=== PATIENT | male | born 1935 | race Caucasian/White ===

== ENCOUNTER 2018-07-14 19:06 | Emergency (ER) | payer MEDICARE, OTHER ==
--- NOTE | 2018-07-14 20:23 | ER Document Report ---
ED General - General Mode of Arrival: Ambulatory Information source: Patient TRAVEL OUTSIDE OF THE U.S. IN LAST 30 DAYS: No <RACHANA LANE - Last Filed: 07/15/18 03:14> <ADRIANATEODORO Kruger - Last Filed: 07/18/18 10:47> - General Chief Complaint: Low Back Pain Stated Complaint: BACK PAIN Time Seen by Provider: 07/14/18 19:54 Notes: Patient is an 82-year-old male with Alzheimer's disease, neuropathy and arthritis and history of UTIs presents to the emergency department via EMS complaining of multiple symptoms including bilateral lower extremity swelling, altered mental status and difficulty ambulating. states the patient normally "shuffles" around his home with a walker and normally sits in a lift chair. She states today, the patient sat in a normal chair and was unable to get up. She states the patient became angry with her when attempting to get up, which she attributes to his worsening Alzheimer's and states she proceeded to call EMS. She also states the patient's lower extremities have been swelling more over the last few weeks. also complains of urinary incontinence and urinary frequency. Patient denies any recent falls, fevers or recent illnesses. She states the patient is currently on Lasix and she attempts to keep his feet elevated at most times. Patient is on 81 mg of Aspirin. (RACHANA LANE) - Related Data Allergies/Adverse Reactions: No Known Allergies Allergy (Unverified 01/17/14 09:30) Past Medical History - General Information source: Patient, Relative - Social History Smoking Status: Never Smoker Chew tobacco use (# tins/day): No Frequency of alcohol use: None Drug Abuse: None Family History: CAD, Malignancy - Leukemia Patient has suicidal ideation: No Patient has homicidal ideation: No - Past Medical History Cardiac Medical History: Reports: Hx Hypercholesterolemia, Hx Hypertension Pulmonary Medical History: Reports: Hx Pneumonia - 2009 Comment Only: Hx Bronchitis - 2010 Malignancy Medical History: Reports Hx Colorectal Cancer - Status post left hemicolectomy chemotherapy and radiation in 1996, Reports Hx Skin Cancer - Melanoma status post experimental chemotherapy in 1965 Musculoskeletal Medical History: 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 Skin Medical History: Reports Hx Psoriasis Past Surgical History: Reports: Hx Abdominal Surgery - Immunizations Hx Diphtheria, Pertussis, Tetanus Vaccination: Yes Hx Pneumococcal Vaccination: 06/23/11 <[address]HANA L[address] - Last Filed: 07/15/18 03:14> Review of Systems - Review of Systems Constitutional: No symptoms reported EENT: No symptoms reported Cardiovascular: No symptoms reported Respiratory: No symptoms reported Gastrointestinal: No symptoms reported Genitourinary: See HPI Male Genitourinary: No symptoms reported Musculoskeletal: See HPI Skin: No symptoms reported Hematologic/Lymphatic: No symptoms reported Neurological/Psychological: See HPI -: Yes All other systems reviewed and negative <ARIANAJULIUSRONNIE - Last Filed: 07/15/18 03:14> Physical Exam <ARIANA,JULIUSRONNIE - Last Filed: 07/15/18 03:14> <TEODORO WRIGHT Slick - Last Filed: 07/18/18 10:47> - Vital signs Vitals: Resp 14 07/14/18 19:15 - Notes Notes: GENERAL: Alert, interacts well. No acute distress. HEAD: Normocephalic, atraumatic. EYES: Pupils equal, round, and reactive to light. Extraocular movements intact. ENT: Oral mucosa moist, tongue midline. NECK: Full range of motion. Supple. Trachea midline. LUNGS: Clear to auscultation bilaterally, no wheezes, rales, or rhonchi. No respiratory distress. HEART: Regular rate and rhythm. No murmurs, gallops, or rubs. ABDOMEN: Soft, non-tender. Non-distended. Bowel sounds present in all 4 quadrants. EXTREMITIES: Moves all 4 extremities spontaneously. +1 Pitting edema in the BLE. NEUROLOGICAL: Alert to person and place, not oriented to time. Altered from baseline. PSYCH: Normal affect, normal mood. SKIN: Warm, dry, normal turgor. No rashes or lesions noted. (RACHANA LANE) Course - Laboratory Result Diagrams: 07/14/18 20:28 07/14/18 20:28 <ARIANAJULIUSRONNIE - Last Filed: 07/15/18 03:14> - Laboratory Result Diagrams: 07/14/18 20:28 07/14/18 20:28 <TEODORO WRIGHT - Last Filed: 07/18/18 10:47> - Re-evaluation Re-evalutation: 07/15/18 21:33 Per nurse, patient is able to stand. (RACHANA LANE) 07/14/18 21:33 Patient's labs within normal limits are nonsignificant with no signs of urinary tract infection on urinalysis. Patient was able to stand to urinate and is able to ambulate per the at his house. No recent cough congestion fevers or illnesses. Primary reason patient was brought to emergency department was by EMS as patient sat in a chair other than his lift chair today and otherwise is not able to. I did discuss that he may soon need higher level of care and acknowledged that possibility. Regards to his fluid retention in his legs advised to use compression stockings as well as elevate his legs with several pillows while sleeping. He is to follow-up with his primary care doctor within the next week for reevaluation. In regards to patient's lower back pain this appears chronic in nature, no recent falls (TEODORO WRIGHT) - Vital Signs Vital signs: Temp Pulse Resp BP Pulse Ox 16 208/99 H 97 07/14/18 21:01 07/14/18 21:01 07/14/18 21:01 - Laboratory Laboratory results interpreted by me: 07/14/18 07/14/18 20:28 20:58 Carbon Dioxide 34 H ALT 20 L Total Protein 6.0 L Albumin 3.4 L Urine Protein 100 H Urine Urobilinogen 2.0 H Urine Ascorbic Acid 40 H Discharge <RACHANA LANE - Last Filed: 07/15/18 03:14> <TEODORO WRIGHT - Last Filed: 07/18/18 10:47> - Discharge Clinical Impression: Fluid retention in legs Dementia Qualifiers: Dementia type: Alzheimer's disease Alzheimer's disease onset: unspecified onset Dementia behavioral disturbance: with behavioral disturbance Qualified Code(s): G30.9 - Alzheimer's disease, unspecified Condition: Fair Disposition: HOME, SELF-CARE Instructions: Edema, Peripheral ([facility]) Referrals: RAJWINDER WEBB MD [Primary Care Provider] - Follow up as needed (2-3 days for re- evaluation) Scribe Attestation: 07/18/18 10:47 I personally performed the services described in the documentation, reviewed and edited the documentation which was dictated to the scribe in my presence, and it accurately records my words and actions. (TEODORO WRIGHT) Scribe Documentation - Scribe Written by Pabloe:: Elba Small, 07/14/2018 20:31 acting as scribe for :: Adriana <RACHANA LANE - Last Filed: 07/15/18 03:14>
[2018-07-14 20:40] LABS: ABSOLUTE EOSINOPHILS # (AUTO) 0.2 10^3/uL (0.0-0.6); ABSOLUTE LYMPHOCYTES (AUTO) 2.3 10^3/uL (0.5-4.7); ABSOLUTE MONOCYTES (AUTO) 0.9 10^3/uL (0.1-1.4); ABSOLUTE NEUT (AUTO) 5.1 10^3/uL (1.7-8.2); BASOPHILS % (AUTO) 0.5 % (0-2); EOSINOPHILS % (AUTO) 2.6 % (0-6); HEMATOCRIT 43.8 % (37.9-51.0); MEAN CORPUSCULAR HGB CONC 34.2 g/dL (32.0-36.0); MEAN CORPUSCULAR VOLUME 88 fl (80-97); MONOCYTES % (AUTO) 10.3 % (3-13); PLATELET COUNT 156 10^3/uL (150-450); RED CELL DISTRIBUTION WIDTH 13.9 % (11.5-14.0); SEGMENTED NEUTROPHILS % (AUTO) 59.6 % (42-78); TOTAL CELLS COUNTED % (AUTO) 100 %; WHITE BLOOD COUNT 8.5 10^3/uL (4.0-10.5)
[2018-07-14 20:55] LABS: ALANINE AMINOTRANSFERASE 20 U/L (21-72); ALBUMIN 3.4 g/dL (3.5-5.0); ALKALINE PHOSPHATASE 82 U/L (38-126); ANION GAP 9 (5-19); ASPARTATE AMINO TRANSFERASE 25 U/L (17-59); BILIRUBIN,DIRECT 0.2 mg/dL (0.0-0.4); BILIRUBIN,TOTAL 0.7 mg/dL (0.2-1.3); BLOOD UREA NITROGEN 16 mg/dL (7-20); CALCIUM 9.5 mg/dL (8.4-10.2); CARBON DIOXIDE 34 mmol/L (22-30); CHLORIDE 99 mmol/L (98-107); GLUCOSE 96 mg/dL (75-110); POTASSIUM 4.2 mmol/L (3.6-5.0); SODIUM 141.7 mmol/L (137-145)
[2018-07-14 21:15] LABS: APPEARANCE,URINE CLEAR; BILIRUBIN,URINE NEGATIVE (NEGATIVE); COLOR,URINE YELLOW; GLUCOSE, URINE NEGATIVE (NEGATIVE); KETONES,URINE NEGATIVE (NEGATIVE); LEUKOCYTE ESTERASE,URINE NEGATIVE (NEGATIVE); NITRITE,URINE NEGATIVE (NEGATIVE); PROTEIN,URINE 100 mg/dL (NEGATIVE); URINE SPECIFIC GRAVITY 1.014
[2018-07-14 21:22] VITALS: BP 208/99
== END 2018-07-14 21:45 | disposition home or self-care (01) ==
LOC: ER 19:06
DX: R60.9 Edema, unspecified (principal); M54.5 Low back pain; G30.9 Alzheimer's disease, unspecified; F02.80 Dementia in other diseases classified elsewhere, unspecified severity, without behavioral disturbance, psychotic disturbance, mood disturbance, and anxiety; E78.00 Pure hypercholesterolemia, unspecified; I10 Essential (primary) hypertension; Z87.440 Personal history of urinary (tract) infections; Z79.82 Long term (current) use of aspirin
CPT/HCPCS: 36415; 80053; 81001; 85025; 99284

== ENCOUNTER 2018-12-15 08:44 | Inpatient (IN) | payer MEDICARE, OTHER ==
[2018-12-15 09:28] LABS: ABSOLUTE EOSINOPHILS # (AUTO) 0.1 10^3/uL (0.0-0.6); ABSOLUTE LYMPHOCYTES (AUTO) 1.3 10^3/uL (0.5-4.7); ABSOLUTE MONOCYTES (AUTO) 0.7 10^3/uL (0.1-1.4); ABSOLUTE NEUT (AUTO) 10.3 10^3/uL (1.7-8.2); BASOPHILS % (AUTO) 0.3 % (0-2); EOSINOPHILS % (AUTO) 0.6 % (0-6); HEMATOCRIT 45.7 % (37.9-51.0); HEMOGLOBIN 15.3 g/dL (13.5-17.0); LYMPHOCYTES % (AUTO) 10.8 % (13-45); MEAN CORPUSCULAR HGB CONC 33.6 g/dL (32.0-36.0); MEAN CORPUSCULAR VOLUME 90 fl (80-97); MONOCYTES % (AUTO) 5.5 % (3-13); PLATELET COUNT 153 10^3/uL (150-450); RED BLOOD COUNT 5.11 10^6/uL (4.35-5.55); RED CELL DISTRIBUTION WIDTH 14.2 % (11.5-14.0); SEGMENTED NEUTROPHILS % (AUTO) 82.8 % (42-78); TOTAL CELLS COUNTED % (AUTO) 100 %; WHITE BLOOD COUNT 12.4 10^3/uL (4.0-10.5)
[2018-12-15 09:35] LABS: APPEARANCE,URINE CLEAR; BILIRUBIN,URINE NEGATIVE (NEGATIVE); COLOR,URINE YELLOW; GLUCOSE, URINE NEGATIVE (NEGATIVE); INTERNATIONAL RATION (INR) 0.92; KETONES,URINE NEGATIVE (NEGATIVE); LEUKOCYTE ESTERASE,URINE NEGATIVE (NEGATIVE); NITRITE,URINE NEGATIVE (NEGATIVE); PROTEIN,URINE 100 mg/dL (NEGATIVE); PROTHROMBIN TIME 12.8 SEC (11.4-15.4); URINE SPECIFIC GRAVITY 1.015
[2018-12-15 09:45] LABS: ALANINE AMINOTRANSFERASE 28 U/L (21-72); ALBUMIN 3.6 g/dL (3.5-5.0); ALKALINE PHOSPHATASE 86 U/L (38-126); ANION GAP 6 (5-19); ASPARTATE AMINO TRANSFERASE 25 U/L (17-59); BILIRUBIN,DIRECT 0.4 mg/dL (0.0-0.4); BLOOD UREA NITROGEN 17 mg/dL (7-20); CALCIUM 9.7 mg/dL (8.4-10.2); CARBON DIOXIDE 30 mmol/L (22-30); CHLORIDE 104 mmol/L (98-107); GLUCOSE 124 mg/dL (75-110); SODIUM 139.9 mmol/L (137-145); TOTAL PROTEIN 6.2 g/dL (6.3-8.2)
--- NOTE | 2018-12-15 10:00 | RADIOLOGY REPORT (SQ) ---
EXAM DESCRIPTION: CT HEAD WITHOUT COMPLETED DATE/TIME: 12/15/2018 9:42 am REASON FOR STUDY: FALL COMPARISON: 01/10/2015 TECHNIQUE: Axial images acquired through the brain without intravenous contrast. Images reviewed wi th bone, brain and subdural windows. Choose to Images stored on PACS. All CT scanners at this facility use dose modulation, iterative reconstruction, and/or weight based d osing when appropriate to reduce radiation dose to as low as reasonably achievable (ALARA). [facility]: Dose Right [facility]: CareDose [facility]: Dose Right [facility]: Teradose 4D [facility]: NONO RADIATION DOSE: CT Rad equipment meets quality standard of care and radiation dose reduction techniq ues were employed. CTDIvol: 53.2 mGy. DLP: 1044 mGy-cm.mGy. LIMITATIONS: None. FINDINGS: VENTRICLES: Prominent. CEREBRUM: No masses. No hemorrhage. No midline shift. Areas of low density in the white matter mos t likely due to chronic micro-vascular ischemic change. No evidence for acute infarction. CEREBELLUM: No masses. No hemorrhage. No alteration of density. No evidence for acute infarction. EXTRAAXIAL SPACES: Age-related involutional change. No fluid collections. No masses. ORBITS AND GLOBE: No intra- or extraconal masses. Normal contour of globe without masses. CALVARIUM: No fracture. PARANASAL SINUSES: No fluid or mucosal thickening. SOFT TISSUES: No mass or hematoma. OTHER: No other significant finding. IMPRESSION: CHRONIC CHANGES OF ATROPHY AND MICROVASCULAR ISCHEMIA. NO ACUTE PROCESS. EVIDENCE OF ACUTE STROKE: NO. TECHNICAL DOCUMENTATION: JOB ID: [id number] Quality ID # [id number]: Final reports with documentation of one or more dose reduction techniques (e.g., Au tomated exposure control, adjustment of the mA and/or kV according to patient size, use of iterative reconstruction technique) 2010 [employer]- All Rights Reserved Reading location - IP/workstation name: [email or web address]
--- NOTE | 2018-12-15 10:03 | RADIOLOGY REPORT (SQ) ---
EXAM DESCRIPTION: CT CERVICAL SPINE WITHOUT COMPLETED DATE/TIME: 12/15/2018 9:42 am REASON FOR STUDY: FALL COMPARISON: None. TECHNIQUE: Axial images acquired through the cervical spine without intravenous contrast. Images re viewed with lung, soft tissue and bone windows. Reconstructed coronal and sagittal MPR images review ed. Images stored on PACS. All CT scanners at this facility use dose modulation, iterative reconstruction, and/or weight based d osing when appropriate to reduce radiation dose to as low as reasonably achievable (ALARA). [facility]: Dose Right [facility]: CareDose [facility]: Dose Right [facility]: Teradose 4D [facility]: Code[employer]ike RADIATION DOSE: CT Rad equipment meets quality standard of care and radiation dose reduction techniq ues were employed. CTDIvol: 27.2 mGy. DLP: 560 mGy-cm. mGy. LIMITATIONS: Motion. FINDINGS: ALIGNMENT: Reversal of lordotic curve. Grade 1 spondylolisthesis multiple levels with spa ring of C2-3. MINERALIZATION: Osteopenia. VERTEBRAL BODIES: No fractures or dislocation. DISCS: Multilevel disc space narrowing with osteophytes. FACETS, LATERAL MASSES, POSTERIOR ELEMENTS: Facet arthropathy. No fractures. No dislocation. No ac florian findings. HARDWARE: None in the spine. VISUALIZED RIBS: No fractures. LUNG APICES AND SOFT TISSUES: No significant or acute findings. OTHER: No other significant finding. IMPRESSION: CHRONIC DEGENERATIVE CHANGES. NO ACUTE FINDINGS. TECHNICAL DOCUMENTATION: JOB ID: [id number] Quality ID # [id number]: Final reports with documentation of one or more dose reduction techniques (e.g., Au tomated exposure control, adjustment of the mA and/or kV according to patient size, use of iterative reconstruction technique) 2010 [employer]- All Rights Reserved Reading location - IP/workstation name: [email or web address]
--- NOTE | 2018-12-15 10:09 | RADIOLOGY REPORT (SQ) ---
EXAM DESCRIPTION: HAND LEFT 3 VIEWS COMPLETE DATE/TIME: 12/15/2018 9:56 am REASON FOR STUDY: fall Deformity FINDINGS: Please see combined report for performance of procedure and radiologic supervision and int erpretation. IMPRESSION: Please see combined report for performance of procedure and radiologic supervision and i nterpretation. Reading location - IP/workstation name: [email or web address]
--- NOTE | 2018-12-15 10:09 | RADIOLOGY REPORT (SQ) ---
EXAM DESCRIPTION: FOREARM LEFT COMPLETED DATE/TIME: 12/15/2018 9:56 am REASON FOR STUDY: fall Deformity COMPARISON: None. NUMBER OF VIEWS: Five views. TECHNIQUE: AP, lateral, and oblique radiographic images acquired of the left wrist. AP and lateral views of the left forearm. LIMITATIONS: None. FINDINGS: MINERALIZATION: Osteopenia. BONES: Physical comminuted fracture of the distal radius with impaction and approximately 30 volar a ngulation. Widening of the scapholunate space may indicate concurrent ligamentous injury. SOFT TISSUES: No soft tissue swelling. No foreign body. OTHER: No other significant finding. IMPRESSION: Fracture of the distal radius. TECHNICAL DOCUMENTATION: JOB ID: [id number] [employer]- All Rights Reserved Reading location - IP/workstation name: [email or web address]
--- NOTE | 2018-12-15 10:14 | RADIOLOGY REPORT (SQ) ---
EXAM DESCRIPTION: PELVIS AP COMPLETED DATE/TIME: 12/15/2018 9:56 am REASON FOR STUDY: fall Deformity COMPARISON: None. NUMBER OF VIEWS: One view TECHNIQUE: AP Pelvis LIMITATIONS: None. FINDINGS: Bones are osteopenic. There is comminuted fracture of the left femoral neck intertrochant peter with varus angulation and impaction. Mild medial displacement of the lesser trochanter. No oth er fracture identified. IMPRESSION: Intertrochanteric fracture right femoral neck. TECHNICAL DOCUMENTATION: JOB ID: [id number] [employer]- All Rights Reserved Reading location - IP/workstation name: [email or web address]
[2018-12-15] MEDS ORDERED: FENTANYL CITRATE INJ/PF 100 MCG/2 ML AMPUL IV ONE (10:39)
--- NOTE | 2018-12-15 11:24 | ER Document Report ---
Addendum entered and electronically signed by POPPY LANCASTER PA-C 12/15/18 16:39: Course - Vital Signs Vital signs: Temp Pulse Resp BP Pulse Ox 97.3 F 69 17 173/102 H 94 12/15/18 09:26 12/15/18 09:17 12/15/18 15:27 12/15/18 16:06 12/15/18 16:06 - Laboratory Result Diagrams: 12/15/18 09:00 12/15/18 09:00 Laboratory results interpreted by me: 12/15/18 12/15/18 12/15/18 09:00 09:00 09:00 WBC 12.4 H RDW 14.2 H Seg Neutrophils % 82.8 H Lymphocytes % 10.8 L Absolute Neutrophils 10.3 H Est GFR (Non-Af Amer) 56 L Glucose 124 H Total Protein 6.2 L Urine Protein 100 H Urine Urobilinogen 4.0 H - Transfer of Care Notes: 12/15/18 16:38 Patient was placed in a Ortho-Glass forearm splint by the wind commissioning technician was checked by myself the emergency room physician public health training assistant will be good position which gave patient a significant amount of relief once he was stabilized. Refill in the nailbeds was less than 2 seconds still the patient has good range of motion with his fingers and at this time patient is tolerating the splint very well. Original Note: ED Fall - General Chief Complaint: Fall Injury Stated Complaint: HIP PAIN Time Seen by Provider: 12/15/18 09:07 Primary Care Provider: RAJWINDER WEBB MD [Primary Care Provider] - Follow up as needed Mode of Arrival: Medic Information source: Emergency Med Personnel Cannot obtain history due to: Dementia Notes: Patient is an 83-year-old male who comes in by EMS today after sustaining a fall from standing at home. EMS reports that the caregiver his indicated that he had got up to go to the bathroom and tripped and fell. It was reported the patient did not hit his head but there was not and I witnessed at the time of the fall. Although caretakers i.e. his indicated that he is acting his baseline. Patient is complaining of pain to his left hip/groin and his left hand/wrist. TRAVEL OUTSIDE OF THE [place] IN LAST 30 DAYS: No - HPI Occurred: Just prior to arrival Where: Home Context: Tripped, Fell from standing Associated symptoms: Dazed/confused. denies: Lost consciousness Location of injury/pain: Wrist, Lower extremity Quality of pain: Sharp, Throbbing Severity: Moderate Pain Level: 3 - Related data Allergies/Adverse Reactions: No Known Allergies Allergy (Unverified 01/17/14 09:30) Past Medical History - Social History Smoking Status: Unknown if Ever Smoked Cigarette use (# per day): No Chew tobacco use (# tins/day): No Smoking Education Provided: No Frequency of alcohol use: None Drug Abuse: None Lives with: Family Family History: Reviewed & Not Pertinent, CAD, Malignancy - Leukemia Patient has suicidal ideation: No Patient has homicidal ideation: No - Past Medical History Cardiac Medical History: Reports: Hx Hypercholesterolemia, Hx Hypertension Denies: Hx Coronary Artery Disease, Hx Heart Attack Pulmonary Medical History: Reports: Hx Pneumonia - 2009 Denies: Hx Asthma, Hx COPD, Hx Tuberculosis Comment Only: Hx Bronchitis - 2009 Neurological Medical History: Denies: Hx Cerebrovascular Accident, Hx Seizures Renal/ Medical History: Denies: Hx Peritoneal Dialysis Malignancy Medical History: Reports Hx Colorectal Cancer - Status post left hemicolectomy chemotherapy and radiation in 1996, Reports Hx Skin Cancer - Melanoma status post experimental chemotherapy in 1965 Musculoskeletal Medical History: 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 Denies: Hx Pacemaker - Immunizations Hx Diphtheria, Pertussis, Tetanus Vaccination: Yes Hx Pneumococcal Vaccination: 06/23/11 Review of Systems - Review of Systems Constitutional: No symptoms reported EENT: No symptoms reported Cardiovascular: No symptoms reported Respiratory: No symptoms reported Gastrointestinal: No symptoms reported Genitourinary: No symptoms reported Male Genitourinary: No symptoms reported Musculoskeletal: See HPI, Joint pain, Joint swelling, Muscle pain Skin: No symptoms reported Hematologic/Lymphatic: No symptoms reported Neurological/Psychological: No symptoms reported -: Yes All other systems reviewed and negative Physical Exam - Vital signs Vitals: Temp Pulse Resp BP 97.3 F 69 18 175/88 H 12/15/18 09:17 12/15/18 09:17 12/15/18 09:17 12/15/18 09:17 Interpretation: Hypertensive - Notes Notes: PHYSICAL EXAMINATION: GENERAL: Well-nourished 83-year-old male who is in no apparent distress, physical examination however he does not appear in moderate amount of pain and discomfort. HEAD: Atraumatic, normocephalic. EYES: Pupils equal round and reactive to light, extraocular movements intact, sclera anicteric, conjunctiva are normal. ENT: Nares patent, oropharynx clear without exudates. Moist mucous membranes. NECK: Normal range of motion, supple without lymphadenopathy patient will be his neck freely without any discomfort on arrival by EMS. LUNGS: Breath sounds clear to auscultation bilaterally and equal. No wheezes rales or rhonchi. HEART: Regular rate and rhythm without murmurs ABDOMEN: Soft, nontender, nondistended abdomen. No guarding, no rebound. No masses appreciated. Musculoskeletal: Examination patient's area of concern is his left hip him from the base of the feet up he has the left hip is rotated outward and is shortened by about an inch and a half. Palpation of the left groin shows moderate amount of tenderness. There is some mild ecchymosis in the local area unable to do any passive range of motion without any pain or discomfort. It is almost instantaneous pain to touch the area. There is no sign of any type of opening to this is a closed fracture. Patient displays good femoral pulses and good popliteal pulse and good dorsalis pedal pulse. Also displays good cap refill in the nailbeds of the left foot. The left wrist has an obvious deformity there is a what appears to be a volar deformity. There is a moderate-sized skin tear on the dorsum of the left hand. Patient has good flexion extension of all fingers and good dynamometer tester engine strength as well as good opposition. Patient has good cap refill in nailbeds of the left hand. NEUROLOGICAL: Cranial nerves grossly intact. Normal speech, normal gait. Norm al sensory, motor exams PSYCH: Normal mood, normal affect. SKIN: Warm, Dry, normal turgor, no rashes or lesions noted. - Neurological Neuro grossly intact: Yes Cognition: Normal Orientation: AAOx4 Girish Coma Scale Eye Opening: Spontaneous [place] Coma Scale Verbal: Oriented - Psychological Associated symptoms: Normal affect, Normal mood, Confused, Depressed - 1.42 was 11.4 Course - Re-evaluation Re-evalutation: 12/15/18 14:22 Patient is doing well while being here in the ER. He is only asked for pain medications on a few occasions and he is relatively comfortable. I have discussed this case with both Dr. Mariscal and he is on board on the case and he will be consulted by hospitalist for surgical intervention. We wrapped the wrist to the best of our ability to give us some stability and it felt much better for patient to have it open. He does have a skin tear on the hand we did not fix that skin tear secondary patient probably going to the OR and they can have available much better approach to it there. I have called the hospitalist and the nurse practitioner Zofia Luna is taking the patient I am given her the information she is accepted and we are going to make him an inpatient admit put him on telemetry. Patient's is also been very helpful and given his history. - Vital Signs Vital signs: Temp Pulse Resp BP Pulse Ox 97.3 F 69 18 175/88 H 12/15/18 09:26 12/15/18 09:17 12/15/18 09:17 12/15/18 09:17 - Laboratory Result Diagrams: 12/15/18 09:00 12/15/18 09:00 Laboratory results interpreted by me: 12/15/18 12/15/18 12/15/18 09:00 09:00 09:00 WBC 12.4 H RDW 14.2 H Seg Neutrophils % 82.8 H Lymphocytes % 10.8 L Absolute Neutrophils 10.3 H Est GFR (Non-Af Amer) 56 L Glucose 124 H Total Protein 6.2 L Urine Protein 100 H Urine Urobilinogen 4.0 H Discharge - Discharge Clinical Impression: Closed intertrochanteric fracture of left femur Qualifiers: Encounter type: initial encounter Fracture alignment: displaced Qualified Code(s): S72.142A - Displaced intertrochanteric fracture of left femur, initial encounter for closed fracture Distal radius fracture, left Qualifiers: Encounter type: initial encounter Fracture type: closed Fracture morphology: unspecified fracture morphology Qualified Code(s): S52.502A - Unspecified fracture of the lower end of left radius, initial encounter for closed fracture Condition: Good Disposition: ADMITTED INPATIENT Admitting Provider: Zofia Luna Forging Roll Operator Unit Admitted: Telemetry Referrals: RAJWINDER WEBB MD [Primary Care Provider] - Follow up as needed
--- NOTE | 2018-12-15 12:04 | RADIOLOGY REPORT (SQ) ---
EXAM DESCRIPTION: ANKLE LEFT AP/LATERAL COMPLETED DATE/TIME: 12/15/2018 11:48 am REASON FOR STUDY: fall COMPARISON: None. NUMBER OF VIEWS: Two views. TECHNIQUE: AP and lateral radiographic images acquired of the left ankle. LIMITATIONS: None. FINDINGS: MINERALIZATION: Osteopenia. BONES: No acute fracture or dislocation. No worrisome bone lesions. JOINTS: Intact. SOFT TISSUES: Diffuse swelling. No foreign body. OTHER: No other significant finding. IMPRESSION: Osteopenia. No fracture identified. TECHNICAL DOCUMENTATION: JOB ID: [id number] [employer]- All Rights Reserved Reading location - IP/workstation name: [email or web address]
--- NOTE | 2018-12-15 12:22 | EKG REPORT ---
SEVERITY:- ABNORMAL ECG - SINUS RHYTHM RIGHT BUNDLE BRANCH BLOCK PVC. : Confirmed by: Wily Warren MD 15-Dec-2018 12:20:48
[2018-12-15] MEDS ORDERED: HYDROMORPHONE HCL INJ/PF 2 MG/ML AMPULE IV ONE ×3 (12:41→19:45)
[2018-12-15] MEDS ORDERED: ACETAMINOPHEN 325 MG TABLET PO PRN (14:34)
[2018-12-15] MEDS ORDERED: ONDANSETRON 4 MG TAB.RAPDIS PO PRN (14:34)
[2018-12-15] MEDS ORDERED: HYDROMORPHONE HCL INJ/PF 2 MG/ML AMPULE IV PRN (15:43)
[2018-12-15] MEDS: METOPROLOL SUCCINATE 50 MG TAB.SR.24H PO SCH (16:07)
[2018-12-15] MEDS: HYDROMORPHONE HCL INJ/PF 2 MG/ML AMPULE IV PRN ×2 (16:33→21:32)
--- NOTE | 2018-12-15 17:18 | PDOC H&P ---
History of Present Illness Admission Date/PCP: RAJWINDER WEBB MD Patient complains of: FALL History of Present Illness: EMMA BOSTON JR is a 83 year old male with a PMH of HTN, HLD and dementia. Patient got up in the early a.m. to ambulate (with walker) to the bathroom. Patient tripped and fell from standing position, endorses head trauma but denies LOC. He was brought by ambulance to [facility] ED. Radiological studies reveal right intertrochanteric fracture of the femoral neck and fracture of the left distal radius. Laboratory studies relatively benign. EKG shows NSR, no ischemia or infarction. Plan to admit to hospitalist service with Ortho Surgery consulted. 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 Denies: Pacemaker Social History Information Source: Patient Lives with: Family Smoking Status: Former Smoker - 15 years Number of Years Smokin Last Time Smoked: 52 years ago Frequency of Alcohol Use: None Hx Recreational Drug Use: No Drugs: None Hx Prescription Drug Abuse: No - Advance Directive Resuscitation Status: Do Not Resuscitate Family History Family History: Reviewed & Not Pertinent, CAD, Malignancy - Leukemia Parental Family History Reviewed: Yes Children Family History Reviewed: Yes Sibling(s) Family History Reviewed.: Yes Medication/Allergy Home Medications: Ascorbic Acid [Vitamin C 500 mg Tablet] 500 mg PO DAILY 01/08/12 Aspirin [Aspirin 81 mg Chewable Tablet] 81 mg PO DAILY 01/08/12 Calcium Citrate/Vitamin D3 [Calcium Citrate with D Tablet] 1 each PO BID 01/08/12 Cholecalciferol (Vitamin D3) [Vitamin D3 2000 unit Capsule] 2,000 unit PO DAILY 01/08/12 Lisinopril [Prinivil 40 mg Tablet] 40 mg PO QPM 01/08/12 Metoprolol Succinate [Toprol Xl 50 mg Tab.sr] 50 mg PO BID 01/08/12 Multivitamin [Multi-Day Vitamins] 1 each PO DAILY 01/08/12 Simvastatin [Zocor 40 mg Tablet] 40 mg PO QPM 01/08/12 Acetaminophen with Codeine [Tylenol with Codeine #3 Tablet] 1 tab PO Q6 01/17/14 Fexofenadine HCl [Antonia] 1 tab PO DAILY PRN 01/17/14 Fluocinolone/Shower Cap [Kxbhe-Xcxrlzk-Du Scalp Oil] 1 tab TOP DAILY 01/17/14 Furosemide [Lasix 40 mg Tablet] 1 tab PO QAM 01/17/14 Gabapentin 300 mg PO TID 01/10/15 Morphine Sulfate [Morphine Sulfate ER] 30 mg PO 0600,1800 01/11/15 Docusate Sodium [Colace 100 mg Capsule] 100 mg PO BID #60 capsule 01/14/15 Levofloxacin [Levaquin 750 mg Tablet] 750 mg PO DAILY #10 tablet 01/14/15 Nystatin/Triamcin [Mycolog-II Ointment 15 gm] 1 applic TP DAILY #30 tube 01/14/15 Allergies/Adverse Reactions: No Known Allergies Allergy (Unverified 01/17/14 09:30) Review of Systems Eyes: ABSENT: visual disturbances Ears: ABSENT: hearing changes Nose, Mouth, and Throat: ABSENT: vertigo Cardiovascular: ABSENT: chest pain, dyspnea on exertion, orthropnea, palpitations Gastrointestinal: ABSENT: abdominal pain Genitourinary: ABSENT: dysuria Musculoskeletal: PRESENT: deformity - RLE Neurological: PRESENT: abnormal gait - requiring walker Psychiatric: ABSENT: anxiety, depression Endocrine: ABSENT: cold intolerance, heat intolerance Hematologic/Lymphatic: ABSENT: easy bleeding Physical Exam Vital Signs: Temp Pulse Resp BP Pulse Ox 97.3 F 69 19 173/96 H 91 L 12/15/18 09:26 12/15/18 09:17 12/15/18 14:00 12/15/18 13:01 12/15/18 14:00 General appearance: PRESENT: well-developed, well-nourished Head exam: PRESENT: atraumatic Eye exam: PRESENT: conjunctiva pink, PERRLA Mouth exam: PRESENT: moist, tongue midline Neck exam: PRESENT: full ROM Respiratory exam: PRESENT: clear to auscultation dante, symmetrical, unlabored Cardiovascular exam: PRESENT: RRR Pulses: PRESENT: normal radial pulses, normal dorsalis pedis pul Vascular exam: PRESENT: normal capillary refill GI/Abdominal exam: PRESENT: normal bowel sounds, soft. ABSENT: distended, tenderness Rectal exam: PRESENT: deferred Extremities exam: PRESENT: pedal edema - trace. ABSENT: full ROM Musculoskeletal exam: PRESENT: deformity. ABSENT: ambulatory, full ROM Neurological exam: PRESENT: alert, awake, oriented to person, oriented to place, oriented to time, oriented to situation Psychiatric exam: PRESENT: appropriate affect Skin exam: PRESENT: dry, intact, normal color Results Laboratory Results: 12/15/18 09:00 12/15/18 09:00 12/15/18 12/15/18 12/15/18 09:00 09:00 09:00 WBC 12.4 H RBC 5.11 Hgb 15.3 Hct 45.7 MCV 90 MCH 30.0 MCHC 33.6 RDW 14.2 H Plt Count 153 Seg Neutrophils % 82.8 H Lymphocytes % 10.8 L Monocytes % 5.5 Eosinophils % 0.6 Basophils % 0.3 Absolute Neutrophils 10.3 H Absolute Lymphocytes 1.3 Absolute Monocytes 0.7 Absolute Eosinophils 0.1 Absolute Basophils 0.0 Sodium 139.9 Potassium 4.0 Chloride 104 Carbon Dioxide 30 Anion Gap 6 BUN 17 Creatinine 1.24 Est GFR ( Amer) > 60 Est GFR (Non-Af Amer) 56 L Glucose 124 H Calcium 9.7 Total Bilirubin 1.0 AST 25 ALT 28 Alkaline Phosphatase 86 Total Protein 6.2 L Albumin 3.6 Urine Color YELLOW Urine Appearance CLEAR Urine pH 6.0 Ur Specific [place] 1.015 Urine Protein 100 H Urine Glucose (UA) NEGATIVE Urine Ketones NEGATIVE Urine Blood NEGATIVE Urine Nitrite NEGATIVE Ur Leukocyte Esterase NEGATIVE Urine WBC (Auto) 1 Urine RBC (Auto) 6 12/15/18 09:00 Troponin I < 0.012 Impressions: Forearm X-Ray 12/15/18 09:09 IMPRESSION: Fracture of the distal radius. Hand X-Ray 12/15/18 09:09 IMPRESSION: Please see combined report for performance of procedure and radiologic supervision and interpretation. Pelvis X-Ray 12/15/18 09:09 IMPRESSION: Intertrochanteric fracture right femoral neck. Head CT 12/15/18 09:12 IMPRESSION: CHRONIC CHANGES OF ATROPHY AND MICROVASCULAR ISCHEMIA. NO ACUTE PROCESS. EVIDENCE OF ACUTE STROKE: NO. Cervical Spine CT 12/15/18 09:13 IMPRESSION: CHRONIC DEGENERATIVE CHANGES. NO ACUTE FINDINGS. Ankle X-Ray 12/15/18 11:02 IMPRESSION: Osteopenia. No fracture identified. Status: Imported from PACS Assessment and Plan - Diagnosis (1) Closed intertrochanteric fracture of left femur Qualifiers: Encounter type: initial encounter Fracture alignment: displaced Qualified Code(s): S72.142A - Displaced intertrochanteric fracture of left femur, initial encounter for closed fracture Is this a current diagnosis for this admission?: Yes Plan: Management per Ortho Plan for OR tomorrow PRN dilaudid IV and PO tylenol for pain (2) HTN (hypertension) Qualifiers: Hypertension type: essential hypertension Qualified Code(s): I10 - Essential (primary) hypertension Is this a current diagnosis for this admission?: Yes Plan: PMH HTN Well controlled at this time Continue home dose Toprol XL (3) Dementia Is this a current diagnosis for this admission?: Yes Plan: PMH dementia Patient is pleasantly confused is caregiver (4) Distal radius fracture, left Qualifiers: Encounter type: initial encounter Fracture type: closed Fracture morphol ogy: unspecified fracture morphology Qualified Code(s): S52.502A - Unspecified fracture of the lower end of left radius, initial encounter for closed fracture Is this a current diagnosis for this admission?: Yes Plan: Management per Ortho RUE splinted in ED No reports of significant pain or parasthesia to the extremity - Time Time Spent with patient: 15-24 minutes Medications reviewed and adjusted accordingly: Yes Anticipated discharge: Acute Rehab Within: within 72 hours - Inpatient Certification Based on my medical assessment, after consideration of the patient's comorbidities, presenting symptoms, or acuity I expect that the services needed warrant INPATIENT care.: Yes I certify that my determination is in accordance with my understanding of Medicare's requirements for reasonable and necessary INPATIENT services [42 CFR 412.3e].: Yes Medical Necessity: Risk of Complication if Not Cared For in Hospital
[2018-12-15] MEDS ORDERED: METOPROLOL TARTRATE PF/INJ 5 MG/5 ML SDV IV PRN (19:21)
[2018-12-15] MEDS ORDERED: LISINOPRIL 10 MG TABLET PO ONE (19:45)
[2018-12-15] MEDS ORDERED: METOPROLOL TARTRATE PF/INJ 5 MG/5 ML SDV IV ONE (19:45)
[2018-12-15] MEDS: LISINOPRIL 10 MG TABLET PO SCH (19:49)
[2018-12-15] MEDS: FAMOTIDINE 20 MG TABLET PO SCH (21:33)
[2018-12-15] MEDS ORDERED: FAMOTIDINE 20 MG TABLET PO SCH (22:00)
[2018-12-16] MEDS ORDERED: NORMAL SALINE 1000 ML 1,000 ML IV PRN
[2018-12-16] MEDS: HYDROMORPHONE HCL INJ/PF 2 MG/ML AMPULE IV PRN ×5 (01:45→20:26)
[2018-12-16] MEDS ORDERED: GLUCAGON,HUMAN RECOMB 1 MG INJ SUBCUT PRN ×2 (04:56→12:28)
[2018-12-16] MEDS ORDERED: DEXTROSE 40% GEL 15 GM TUBE PO PRN ×4 (04:56→12:28)
[2018-12-16] MEDS ORDERED: DEXTROSE 50%-WATER 25 GM/50 ML DISP.SYRIN IV PRN ×4 (04:56→12:28)
--- NOTE | 2018-12-16 05:13 | ADVANCED CARE ---
- Diagnosis (1) Closed intertrochanteric fracture of left femur Diagnosis Current: Yes (2) HTN (hypertension) Diagnosis Current: Yes (3) Dementia Diagnosis Current: Yes (4) Distal radius fracture, left Diagnosis Current: Yes Attendance: & PATIENT Resuscitation Status: Do Not Resuscitate Discussion: states she is the patient's caregiver. She cares for him at home. She states the patient wishes to be a ANR/DNI. She has paperwork that outlines his medical wishes. states she brought this paperwork to the hospital before and it "should be on record." Additionally, the patient and agree that acute rehab would be the best option for the patient while he recovers from hip surgery. Care Planning Goals: Patient will remain DNR/DNI. Will make arrangements (when appropriate) with discharge planning to send patient to acute rehab Document(s) Completed: No documents completed. If needed, the can bring all legal paperwork from home Time Spent: 20
[2018-12-16] MEDS: METOPROLOL SUCCINATE 50 MG TAB.SR.24H PO SCH ×2 (06:45→17:20)
[2018-12-16 06:52] LABS: HEMATOCRIT 39.3 % (37.9-51.0); HEMOGLOBIN 13.6 g/dL (13.5-17.0); MEAN CORPUSCULAR HEMOGLOBIN 30.4 pg (27.0-33.4); MEAN CORPUSCULAR HGB CONC 34.6 g/dL (32.0-36.0); MEAN CORPUSCULAR VOLUME 88 fl (80-97); PLATELET COUNT 133 10^3/uL (150-450); RED BLOOD COUNT 4.48 10^6/uL (4.35-5.55); RED CELL DISTRIBUTION WIDTH 13.9 % (11.5-14.0); WHITE BLOOD COUNT 12.2 10^3/uL (4.0-10.5)
[2018-12-16 06:55] LABS: INTERNATIONAL RATION (INR) 1.02; PROTHROMBIN TIME 13.9 SEC (11.4-15.4)
[2018-12-16 06:56] LABS: PARTIAL THROMBOPLASTIN TIME 34.1 SEC (23.5-35.8)
[2018-12-16 07:17] LABS: ALANINE AMINOTRANSFERASE 41 U/L (21-72); ALBUMIN 3.1 g/dL (3.5-5.0); ALKALINE PHOSPHATASE 74 U/L (38-126); ANION GAP 6 (5-19); ASPARTATE AMINO TRANSFERASE 32 U/L (17-59); BILIRUBIN,DIRECT 1.1 mg/dL (0.0-0.4); BILIRUBIN,TOTAL 2.4 mg/dL (0.2-1.3); BLOOD UREA NITROGEN 15 mg/dL (7-20); CALCIUM 9.2 mg/dL (8.4-10.2); CARBON DIOXIDE 29 mmol/L (22-30); CHLORIDE 104 mmol/L (98-107); GLUCOSE 136 mg/dL (75-110); POTASSIUM 3.8 mmol/L (3.6-5.0); SODIUM 138.7 mmol/L (137-145); TOTAL PROTEIN 5.7 g/dL (6.3-8.2)
[2018-12-16] MEDS: FUROSEMIDE 40 MG TABLET PO SCH (09:48)
[2018-12-16] MEDS: ENOXAPARIN SODIUM INJ 30 MG/0.3 ML DISP.SYRIN SUBCUT SCH (12:14)
--- NOTE | 2018-12-16 12:35 | PDOC CONSULTATION ---
History of Present Illness Admission Date/PCP: 12/15/18 14:47 RAJWINDER WEBB MD Patient complains of: Left hip/wrist pain. History of Present Illness: EMMA BOSTON JR is a 83 year old male who sustained a fall attempting to go to the bathroom earlier in the morning on 12/15/18. Patient was brought to the emergency room where x-rays demonstrate hip and wrist fracture. Patient states pain is worse with motion. He has been taking Dilaudid but according the family this is only providing short but not long-term relief. Denies numbness or tingling. Pain 10/ when Dilaudid is no longer adequate. Denies headache or dizziness. 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 Denies: Pacemaker Social History Lives with: Family Smoking Status: Former Smoker Number of Years Smokin Last Time Smoked: 52 years ago Frequency of Alcohol Use: None Hx Recreational Drug Use: No Drugs: None Hx Prescription Drug Abuse: No - Advance Directive Resuscitation Status: Do Not Resuscitate Family History Family History: Reviewed & Not Pertinent, CAD, Malignancy - Leukemia Parental Family History Reviewed: No Children Family History Reviewed: No Sibling(s) Family History Reviewed.: No Medication/Allergy Home Medications: Cholecalciferol (Vitamin D3) [Vitamin D3 2000 unit Capsule] 2,000 unit PO DAILY 01/08/12 Lisinopril [Prinivil 40 mg Tablet] 40 mg PO QPM 01/08/12 Metoprolol Succinate [Toprol Xl 50 mg Tab.sr] 50 mg PO BID 01/08/12 Simvastatin [Zocor 40 mg Tablet] 40 mg PO QPM 01/08/12 Acetaminophen with Codeine [Tylenol with Codeine #3 Tablet] 1 tab PO PRN PRN 01/17/14 Fexofenadine HCl [Antonia] 1 tab PO DAILY PRN 01/17/14 Fluocinolone/Shower Cap [Llpvg-Ijohsjk-Bf Scalp Oil] 1 tab TOP DAILY 01/17/14 Furosemide [Lasix 40 mg Tablet] 1 tab PO QAM 01/17/14 Gabapentin 300 mg PO BID 01/10/15 Morphine Sulfate [Morphine Sulfate ER] 30 mg PO 0600,1800 01/11/15 Aspirin [Ecotrin] 81 mg PO DAILY 12/15/18 Allergies/Adverse Reactions: No Known Allergies Allergy (Unverified 01/17/14 09:30) Review of Systems All systems: as per PMH Constitutional: ABSENT: chills, fever(s), headache(s), weight gain, weight loss Eyes: ABSENT: visual disturbances Ears: ABSENT: hearing changes Cardiovascular: ABSENT: chest pain, dyspnea on exertion, edema, orthropnea, palpitations Respiratory: ABSENT: cough, hemoptysis Gastrointestinal: PRESENT: other - History of colorectal cancer. ABSENT: abdominal pain, constipation, diarrhea, hematemesis, hematochezia, nausea, vomiting Genitourinary: ABSENT: dysuria, hematuria Musculoskeletal: PRESENT: as per HPI Integumentary: ABSENT: rash, wounds Neurological: PRESENT: abnormal gait. ABSENT: abnormal speech, confusion, dizziness, focal weakness, syncope Psychiatric: ABSENT: anxiety, depression, homidical ideation, suicidal ideation Endocrine: ABSENT: cold intolerance, heat intolerance, menstrual abnormalities, polydipsia, polyuria Hematologic/Lymphatic: ABSENT: easy bleeding, easy bruising, lymphadenopathy Physical Exam Vital Signs: Temp Pulse Resp BP Pulse Ox 98.0 F 71 20 188/93 H 92 12/16/18 08:28 12/16/18 08:28 12/16/18 08:28 12/16/18 08:28 12/16/18 08:28 Intake & Output 12/15/18 12/16/18 12/17/18 06:59 06:59 06:59 Weight 122 kg General appearance: PRESENT: no acute distress, cooperative, well-developed, well-nourished Head exam: PRESENT: atraumatic, normocephalic Eye exam: PRESENT: conjunctiva pink, EOMI, PERRLA. ABSENT: scleral icterus Ear exam: PRESENT: normal external ear exam Mouth exam: PRESENT: moist, tongue midline Neck exam: PRESENT: full ROM. ABSENT: carotid bruit, JVD, lymphadenopathy, thyromegaly Cardiovascular exam: PRESENT: RRR. ABSENT: diastolic murmur, rubs, systolic murmur Pulses: PRESENT: normal dorsalis pedis pul, +2 pedal pulses bilateral Vascular exam: PRESENT: normal capillary refill GI/Abdominal exam: PRESENT: normal bowel sounds, soft. ABSENT: distended, guarding, mass, organolmegaly, rebound, tenderness Rectal exam: PRESENT: deferred Musculoskeletal exam: PRESENT: other - Left lower extremity: Positive logroll with short/external rotated extremity Moderate thigh swelling without change, intact plantarflexion/dorsiflexion. No sensory deficits. No calf tenderness. Left wrist: Splint intact. Swelling and ecchymosis along with laceration along the dorsum of the middle finger. No pain with passive stretch. Cap refill less than 2 seconds. Splint intact. Left ankle: Intact plantar flexion/d orsiflexion. Mild swelling. Mild tenderness on the midfoot anteriorly. No medial or lateral malleolus tenderness. Neurological exam: PRESENT: alert, awake, oriented to person, oriented to place, other - Limited communication with flat affect. ABSENT: motor sensory deficit Psychiatric exam: PRESENT: appropriate affect, flat affect, normal mood. ABSENT: homicidal ideation, suicidal ideation Skin exam: PRESENT: dry, intact, warm. ABSENT: cyanosis, rash Results Laboratory Results: 12/16/18 06:16 12/16/18 06:16 12/16/18 12/16/18 06:16 06:16 WBC 12.2 H RBC 4.48 Hgb 13.6 Hct 39.3 MCV 88 MCH 30.4 MCHC 34.6 RDW 13.9 Plt Count 133 L Sodium 138.7 Potassium 3.8 Chloride 104 Carbon Dioxide 29 Anion Gap 6 BUN 15 Creatinine 1.02 Est GFR ( Amer) > 60 Est GFR (Non-Af Amer) > 60 Glucose 136 H Calcium 9.2 Magnesium 1.7 Total Bilirubin 2.4 H AST 32 ALT 41 Alkaline Phosphatase 74 Total Protein 5.7 L Albumin 3.1 L 12/15/18 12/16/18 09:00 06:16 Troponin I < 0.012 NT-Pro-B Natriuret Pep 1540 H Impressions: Forearm X-Ray 12/15/18 09:09 IMPRESSION: Fracture of the distal radius. Hand X-Ray 12/15/18 09:09 IMPRESSION: Please see combined report for performance of procedure and radiologic supervision and interpretation. Pelvis X-Ray 12/15/18 09:09 IMPRESSION: Intertrochanteric fracture right femoral neck. Head CT 12/15/18 09:12 IMPRESSION: CHRONIC CHANGES OF ATROPHY AND MICROVASCULAR ISCHEMIA. NO ACUTE PROCESS. EVIDENCE OF ACUTE STROKE: NO. Cervical Spine CT 12/15/18 09:13 IMPRESSION: CHRONIC DEGENERATIVE CHANGES. NO ACUTE FINDINGS. Ankle X-Ray 12/15/18 11:02 IMPRESSION: Osteopenia. No fracture identified. Status: Image reviewed by me - I have reviewed patient's radiographs which demonstrate a extra-articular distal radius fracture with approximately 20 degrees of dorsal angulation. Left intertrochanteric fracture with avulsion of the lesser trochanter. No evidence of fracture of the left ankle. Assessment & Plan - Diagnosis (1) Closed intertrochanteric fracture of left femur Qualifiers: Encounter type: initial encounter Fracture alignment: displaced Qualified Code(s): S72.142A - Displaced intertrochanteric fracture of left femur, initial encounter for closed fracture Is this a current diagnosis for this admission?: Yes Plan: I have discussed treatment options with the family including postoperative expectations outcomes and rehabilitation and likely the requirement for detention facility. At this point patient has been medically optimized for operative intervention thus will proceed with operative treatment by Dr. Mariscal on 12/17/18. Plan is left cephalo-medullary nail intertrochanteric fracture with possible closed versus open reduction internal fixation left distal radius. Surgical risks have been explained to the patient's family verbalized understanding consented for the procedure. Risks include anesthetic complications, excessive bleeding, infection, injury to surrounding nerves, vessels and tendons, bruising, healing difficulties, scar formation, posttraumatic arthritis and any unforseen complication. (2) Distal radius fracture, left Qualifiers: Encounter type: initial encounter Fracture type: closed Fracture morphology: unspecified fracture morphology Qualified Code(s): S52.502A - Unspecified fracture of the lower end of left radius, initial encounter for closed fracture Is this a current diagnosis for this admission?: Yes
[2018-12-16] MEDS: LISINOPRIL 10 MG TABLET PO SCH (17:21)
[2018-12-16] MEDS: FAMOTIDINE 20 MG TABLET PO SCH (22:15)
[2018-12-16] MEDS: HYDRALAZINE HCL 10 MG TABLET PO SCH (22:15)
[2018-12-17] MEDS: HYDROMORPHONE HCL INJ/PF 2 MG/ML AMPULE IV PRN ×2 (03:17→08:59)
--- NOTE | 2018-12-17 04:54 | RADIOLOGY REPORT (SQ) ---
EXAM DESCRIPTION: X-ray single view chest. CLINICAL HISTORY: 83 years Male, preop for hip surgery COMPARISON: 01/11/2015 and 01/10/2015 TECHNIQUE: Single portable x-ray view of the chest performed on 12/17/2018 at 4:26 AM FINDINGS: The lungs are well expanded and fail to demonstrate any acute parenchymal abnormalities. There are multiple scattered calcified granulomata as noted previously. There is no evidence of a pneumothorax. The cardiac silhouette is normal in size and configuration. The mediastinal contours are normal. No acute osseous abnormality is identified. No focal soft tissue abnormalities are seen. Lines and tubes: None. IMPRESSION: 1. No evidence of acute intrathoracic disease. 2. Evidence of prior granulomatous disease.
[2018-12-17] MEDS: HYDRALAZINE HCL 10 MG TABLET PO SCH ×3 (05:00→21:45)
[2018-12-17] MEDS: METOPROLOL SUCCINATE 50 MG TAB.SR.24H PO SCH ×3 (05:00→18:05)
[2018-12-17 05:30] LABS: ABSOLUTE LYMPHOCYTES (AUTO) 1.2 10^3/uL (0.5-4.7); ABSOLUTE MONOCYTES (AUTO) 1.5 10^3/uL (0.1-1.4); ABSOLUTE NEUT (AUTO) 12.1 10^3/uL (1.7-8.2); BASOPHILS % (AUTO) 0.2 % (0-2); HEMATOCRIT 34.2 % (37.9-51.0); HEMOGLOBIN 11.9 g/dL (13.5-17.0); MEAN CORPUSCULAR HEMOGLOBIN 30.4 pg (27.0-33.4); MEAN CORPUSCULAR HGB CONC 34.7 g/dL (32.0-36.0); MEAN CORPUSCULAR VOLUME 88 fl (80-97); MONOCYTES % (AUTO) 10.2 % (3-13); PLATELET COUNT 111 10^3/uL (150-450); RED CELL DISTRIBUTION WIDTH 13.8 % (11.5-14.0); SEGMENTED NEUTROPHILS % (AUTO) 81.6 % (42-78); TOTAL CELLS COUNTED % (AUTO) 100 %; WHITE BLOOD COUNT 14.8 10^3/uL (4.0-10.5)
[2018-12-17 06:02] LABS: ALANINE AMINOTRANSFERASE 31 U/L (21-72); ALBUMIN 2.5 g/dL (3.5-5.0); ALKALINE PHOSPHATASE 67 U/L (38-126); ANION GAP 5 (5-19); ASPARTATE AMINO TRANSFERASE 22 U/L (17-59); BILIRUBIN,DIRECT 0.7 mg/dL (0.0-0.4); BILIRUBIN,TOTAL 1.7 mg/dL (0.2-1.3); BLOOD UREA NITROGEN 14 mg/dL (7-20); CALCIUM 8.2 mg/dL (8.4-10.2); CARBON DIOXIDE 22 mmol/L (22-30); CHLORIDE 110 mmol/L (98-107); GLUCOSE 149 mg/dL (75-110); SODIUM 137.1 mmol/L (137-145); TOTAL PROTEIN 4.8 g/dL (6.3-8.2)
[2018-12-17] MEDS ORDERED: POTASSI CL 20 MEQ/50 ML RIDER 20 MEQ/50 ML RTUPB IV SCH (06:30)
[2018-12-17] MEDS ORDERED: CEFAZOLIN 2 GM/D5W RTU 2 GM/50 ML RTUPB IV ONE (07:30)
[2018-12-17] MEDS ORDERED: TRANEXAMIC ACID 1,000 MG in DEXTROSE 5%-WATER 50 ML IV ONE (07:30)
[2018-12-17] MEDS: POTASSI CL 20 MEQ/50 ML RIDER 20 MEQ/50 ML RTUPB IV SCH ×2 (07:38→10:15)
[2018-12-17] MEDS: RINGERS SOLUTION,LACTATED 1,000 ML IV PRN (09:00)
[2018-12-17] MEDS ORDERED: POTASSI CL 20 MEQ/50 ML RIDER 20 MEQ/50 ML RTUPB IV ONE (10:05)
[2018-12-17 10:21] LABS: ANION GAP 8 (5-19); BLOOD UREA NITROGEN 15 mg/dL (7-20); CALCIUM 9.1 mg/dL (8.4-10.2); CARBON DIOXIDE 26 mmol/L (22-30); CHLORIDE 104 mmol/L (98-107); GLUCOSE 143 mg/dL (75-110); SODIUM 137.5 mmol/L (137-145)
[2018-12-17 10:23] LABS: POTASSIUM 3.6 mmol/L (3.6-5.0)
[2018-12-17] MEDS ORDERED: MIDAZOLAM 2 MG/2 ML INJ ONE ×2 (10:34→12:23)
[2018-12-17] MEDS ORDERED: PROPOFOL INJ 200 MG/20 ML VIAL IV ONE (10:34)
[2018-12-17] MEDS ORDERED: MORPHINE SULFATE 10 MG/ML INJ ONE (10:34)
[2018-12-17] MEDS ORDERED: CEFAZOLIN INJ 1 GM VIAL ONE (10:48)
[2018-12-17] MEDS ORDERED: BUPIVACAINE HCL 0.25% /EPINEPHRINE INJ/PF 30 ML SDV ONE (10:49)
[2018-12-17] MEDS ORDERED: TRANEXAMIC ACID INJ/PF 1,000 MG/10 ML SDV IV ONE (10:49)
[2018-12-17] MEDS ORDERED: PROMETHAZINE HCL INJ 25 MG/1 ML VIAL IV PRN ×2 (11:55→13:39)
[2018-12-17] MEDS ORDERED: MEPERIDINE HCL/PF INJ 25 MG/1 ML DISP.SYRIN IV PRN ×2 (11:55→13:39)
[2018-12-17] MEDS ORDERED: DIPHENHYDRAMINE HCL 50 MG/ML VIAL IV PRN ×2 (11:55→13:39)
[2018-12-17] MEDS ORDERED: FENTANYL CITRATE INJ/PF 100 MCG/2 ML AMPUL IV PRN ×6 (11:55→13:39)
[2018-12-17] MEDS ORDERED: KETAMINE HCL INJ 500 MG/10 ML VIAL ONE (12:10)
[2018-12-17] MEDS ORDERED: MORPHINE SULFATE 10 MG/ML INJ IV PRN ×2 (12:21)
[2018-12-17] MEDS ORDERED: RINGERS SOLUTION,LACTATED 1,000 ML IV PRN (12:21)
[2018-12-17] MEDS ORDERED: ONDANSETRON 4 MG TAB.RAPDIS PO PRN (12:21)
[2018-12-17] MEDS ORDERED: MAG HYDROX/AL HYDROX/SIMETH SUSP 30 ML UDCUP PO PRN (12:25)
[2018-12-17] MEDS ORDERED: ACETAMINOPHEN 325 MG TABLET PO PRN (12:25)
[2018-12-17] MEDS ORDERED: ZOLPIDEM TARTRATE 5 MG TABLET PO PRN (12:25)
[2018-12-17] MEDS ORDERED: ONDANSETRON HCL INJ/PF 4 MG/2 ML SDV IV PRN (12:25)
--- NOTE | 2018-12-17 12:29 | Operative Report ---
Operative Report DATE OF SURGERY: 12/17/18 PREOPERATIVE DIAGNOSIS: Left intertrochanteric femur fracture. Left distal rad ius fracture OPERATION: Open reduction internal fixation left intertrochanteric femur fracture. Closed reduction and splint application left distal radius fracture SURGEON: BRIGETTE CAZARES ANESTHESIA: Spinal ESTIMATED BLOOD LOSS: 100 PROCEDURE: With the patient supine on the fracture table left lower extremity is manipulated under fluoroscopic guidance to effect an anatomic reduction of the intertrochanteric femur fracture. Subsequently the extremities prepped and draped in sterile fashion. A pin is placed percutaneously through the greater trochanter down through into the femoral medullary diaphysis. A combined reamer was then used to fashion a cortical opening. These were removed and a ball- tipped guide was placed down the femur. Femoral length measured to be 440 mm. Subsequently [place] gamma 3 nail 440 mm x 11 mm x 125 degrees is advanced over the ball-tipped guide kilo for appropriate depth of approximately interlock. 110 mm proximal interlock was placed. A 60 mm distal interlock was placed under fluoroscopic guidance freehand. At this point the wounds irrigated and closed with interrupted Vicryl followed by cheri. Sterile compressive dressings were applied. Next the left upper extremity was prepped and a hematoma block is performed with 1/4% Marcaine and epinephrine. The extremity is manipulated fluoroscopic guidance with near anatomic reduction. Is placed into a splint. Once the splint hardened the reduction is again assessed and felt to be adequate. The patient's return to the PACU in satisfactory condition.
--- NOTE | 2018-12-17 13:20 | RADIOLOGY REPORT (SQ) ---
EXAM DESCRIPTION: WRIST LEFT 2 VIEWS COMPLETED DATE/TIME: 12/17/2018 1:04 pm REASON FOR STUDY: CLOSED REDUCTION LT WRIST IN OR1 COMPARISON: None. FLUOROSCOPY TIME: 0.1 minute 4 images saved to PACS. TECHNIQUE: Intra-operative images acquired during surgical procedure to evaluate progress. NUMBER OF IMAGES: 4 LIMITATIONS: None. FINDINGS: Fluoroscopic images from reduction of distal radial fracture. IMPRESSION: IMAGE(S) OBTAINED DURING PROCEDURE. COMMENT: Quality ID 145: Final reports for procedures using fluoroscopy that document radiation exp osure indices, or exposure time and number of fluorographic images (if radiation exposure indices are not available) Please consult full operative report of the attending physician for description of the procedure. TECHNICAL DOCUMENTATION: JOB ID: [id number] [employer]- All Rights Reserved Reading location - IP/workstation name: [email or web address]
--- NOTE | 2018-12-17 13:21 | RADIOLOGY REPORT (SQ) ---
EXAM DESCRIPTION: HIP IN OPERATING RM; NO CHG FLUORO COMPLETED DATE/TIME: 12/17/2018 1:04 pm REASON FOR STUDY: ORIF LT HIP IN OR1; CLOSED REDUCTION LT WRIST IN OR1 COMPARISON: None. FLUOROSCOPY TIME: 0.6 minutes 7 images saved to PACS. TECHNIQUE: Intra-operative images acquired during surgical procedure to evaluate progress. NUMBER OF IMAGES: 7 LIMITATIONS: None. FINDINGS: Fluoroscopic images from kilo and dynamic hip compression screw fixation of femoral neck fr acture. IMPRESSION: IMAGE(S) OBTAINED DURING PROCEDURE. COMMENT: Quality ID 145: Final reports for procedures using fluoroscopy that document radiation exp osure indices, or exposure time and number of fluorographic images (if radiation exposure indices are not available) Please consult full operative report of the attending physician for description of the procedure. TECHNICAL DOCUMENTATION: JOB ID: [id number] [employer]- All Rights Reserved Reading location - IP/workstation name: [email or web address]
--- NOTE | 2018-12-17 13:21 | RADIOLOGY REPORT (SQ) ---
EXAM DESCRIPTION: HIP IN OPERATING RM; NO CHG FLUORO COMPLETED DATE/TIME: 12/17/2018 1:04 pm REASON FOR STUDY: ORIF LT HIP IN OR1; CLOSED REDUCTION LT WRIST IN OR1 COMPARISON: None. FLUOROSCOPY TIME: 0.6 minutes 7 images saved to PACS. TECHNIQUE: Intra-operative images acquired during surgical procedure to evaluate progress. NUMBER OF IMAGES: 7 LIMITATIONS: None. FINDINGS: Fluoroscopic images from kilo and dynamic hip compression screw fixation of femoral neck fr acture. IMPRESSION: IMAGE(S) OBTAINED DURING PROCEDURE. COMMENT: Quality ID 145: Final reports for procedures using fluoroscopy that document radiation exp osure indices, or exposure time and number of fluorographic images (if radiation exposure indices are not available) Please consult full operative report of the attending physician for description of the procedure. TECHNICAL DOCUMENTATION: JOB ID: [id number] [employer]- All Rights Reserved Reading location - IP/workstation name: [email or web address]
[2018-12-17] MEDS: FUROSEMIDE 40 MG TABLET PO SCH (14:00)
[2018-12-17] MEDS: ENOXAPARIN SODIUM INJ 30 MG/0.3 ML DISP.SYRIN SUBCUT SCH (14:00)
[2018-12-17] MEDS: MORPHINE SULFATE 10 MG/ML INJ IV PRN ×2 (16:02→19:39)
[2018-12-17] MEDS: CHOLECALCIFEROL (D3) 1,000 UNIT TABLET PO SCH (16:03)
[2018-12-17] MEDS ORDERED: CEFAZOLIN 2 GM/D5W RTU 50 ML IV SCH (18:00)
[2018-12-17] MEDS: GABAPENTIN 100 MG CAPSULE PO SCH (18:04)
[2018-12-17] MEDS: LISINOPRIL 10 MG TABLET PO SCH (18:05)
[2018-12-17] MEDS: SIMVASTATIN 40 MG TABLET PO SCH (18:05)
[2018-12-17] MEDS: SENNOSIDES/DOCUSATE 8.6-50 MG 1 EACH TABLET PO SCH (18:05)
[2018-12-17] MEDS: CEFAZOLIN SODIUM 2 GM in DEXTROSE 5%-WATER 100 ML IV SCH ×2 (18:07→23:47)
[2018-12-17] MEDS: MORPHINE SULFATE SR 15 MG TABLET PO SCH (19:53)
[2018-12-17] MEDS: OXYCODONE HCL SR 10 MG TABLET PO SCH (21:46)
[2018-12-17] MEDS: FAMOTIDINE 20 MG TABLET PO SCH (21:46)
[2018-12-18] MEDS: MORPHINE SULFATE 10 MG/ML INJ IV PRN ×3 (01:47→17:14)
[2018-12-18] MEDS: HYDRALAZINE HCL 10 MG TABLET PO SCH ×3 (05:16→22:21)
[2018-12-18] MEDS: CEFAZOLIN SODIUM 2 GM in DEXTROSE 5%-WATER 100 ML IV SCH ×3 (05:16→20:22)
[2018-12-18] MEDS: PANTOPRAZOLE SODIUM 40 MG TABLET.DR PO SCH (05:17)
[2018-12-18] MEDS: METOPROLOL SUCCINATE 50 MG TAB.SR.24H PO SCH ×3 (05:17→20:17)
[2018-12-18] MEDS: MORPHINE SULFATE SR 15 MG TABLET PO SCH ×2 (05:18→20:21)
[2018-12-18 05:30] LABS: ANION GAP 7 (5-19); BLOOD UREA NITROGEN 17 mg/dL (7-20); CARBON DIOXIDE 24 mmol/L (22-30); CHLORIDE 104 mmol/L (98-107); GLUCOSE 135 mg/dL (75-110); POTASSIUM 3.9 mmol/L (3.6-5.0); SODIUM 135.2 mmol/L (137-145)
[2018-12-18 05:49] LABS: HEMATOCRIT 34.9 % (37.9-51.0); HEMOGLOBIN 12.1 g/dL (13.5-17.0); MEAN CORPUSCULAR HEMOGLOBIN 30.3 pg (27.0-33.4); MEAN CORPUSCULAR HGB CONC 34.7 g/dL (32.0-36.0); MEAN CORPUSCULAR VOLUME 88 fl (80-97); PLATELET COUNT 113 10^3/uL (150-450); RED BLOOD COUNT 3.98 10^6/uL (4.35-5.55); RED CELL DISTRIBUTION WIDTH 14.1 % (11.5-14.0); WHITE BLOOD COUNT 17.2 10^3/uL (4.0-10.5)
--- NOTE | 2018-12-18 07:57 | PDOC PROGRESS REPORT ---
Subjective Progress Note for:: 12/16/18 Subjective:: Patient is resting comfortably with family visiting. Does not appear to be in acute discomfort. Reason For Visit: HIP FRACTURE Physical Exam Vital Signs: Temp Pulse Resp BP Pulse Ox 97.8 F 88 16 156/78 H 98 12/17/18 13:27 12/17/18 13:27 12/17/18 13:27 12/17/18 13:27 12/17/18 13:27 Intake & Output 12/16/18 12/17/18 12/18/18 06:59 06:59 06:59 Intake Total 350 1050 Output Total 2200 550 Balance -1850 500 Weight 122 kg 123.6 kg General appearance: PRESENT: no acute distress, cooperative, well-developed Head exam: PRESENT: atraumatic, normocephalic Mouth exam: PRESENT: moist Respiratory exam: PRESENT: clear to auscultation dante. ABSENT: chest wall tenderness, rales, rhonchi, wheezes Cardiovascular exam: PRESENT: RRR, +S1, +S2 GI/Abdominal exam: PRESENT: normal bowel sounds, soft. ABSENT: distended, tenderness Rectal exam: PRESENT: deferred Gentrourinary exam: PRESENT: indwelling catheter Extremities exam: PRESENT: other - Left arm splinted. Blood-tinged dressing over left fingers. Neurological exam: PRESENT: alert, awake, oriented to person, oriented to place Psychiatric exam: PRESENT: appropriate affect. ABSENT: agitated, anxious Focused psych exam: ABSENT: delusional, restlessness Results Laboratory Results: 12/17/18 04:28 12/17/18 16:05 12/17/18 12/17/18 12/17/18 04:28 04:28 09:35 WBC 14.8 H RBC 3.90 L Hgb 11.9 L Hct 34.2 L MCV 88 MCH 30.4 MCHC 34.7 RDW 13.8 Plt Count 111 L Seg Neutrophils % 81.6 H Lymphocytes % 8.0 L Monocytes % 10.2 Eosinophils % 0.0 Basophils % 0.2 Absolute Neutrophils 12.1 H Absolute Lymphocytes 1.2 Absolute Monocytes 1.5 H Absolute Eosinophils 0.0 Absolute Basophils 0.0 Sodium 137.1 137.5 Potassium 3.0 L* 3.6 Chloride 110 H 104 Carbon Dioxide 22 26 Anion Gap 5 8 BUN 14 15 Creatinine 0.80 0.85 Est GFR ( Amer) > 60 > 60 Est GFR (Non-Af Amer) > 60 > 60 Glucose 149 H 143 H Calcium 8.2 L 9.1 Magnesium 1.6 Total Bilirubin 1.7 H AST 22 ALT 31 Alkaline Phosphatase 67 Total Protein 4.8 L Albumin 2.5 L Blood Type Antibody Screen 12/17/18 12/17/18 12/17/18 09:35 09:35 16:05 WBC RBC Hgb Hct MCV MCH MCHC RDW Plt Count Seg Neutrophils % Lymphocytes % Monocytes % Eosinophils % Basophils % Absolute Neutrophils Absolute Lymphocytes Absolute Monocytes Absolute Eosinophils Absolute Basophils Sodium Potassium Cancelled 3.8 Chloride Carbon Dioxide Anion Gap BUN Creatinine Est GFR ( Amer) Est GFR (Non-Af Amer) Glucose Calcium Magnesium Total Bilirubin AST ALT Alkaline Phosphatase Total Protein Albumin Blood Type O POSITIVE Antibody Screen NEGATIVE 12/15/18 12/16/18 09:00 06:16 Troponin I < 0.012 NT-Pro-B Natriuret Pep 1540 H Impressions: Forearm X-Ray 12/15/18 09:09 IMPRESSION: Fracture of the distal radius. Hand X-Ray 12/15/18 09:09 IMPRESSION: Please see combined report for performance of procedure and radiologic supervision and interpretation. Pelvis X-Ray 12/15/18 09:09 IMPRESSION: Intertrochanteric fracture right femoral neck. Head CT 12/15/18 09:12 IMPRESSION: CHRONIC CHANGES OF ATROPHY AND MICROVASCULAR ISCHEMIA. NO ACUTE PROCESS. EVIDENCE OF ACUTE STROKE: NO. Cervical Spine CT 12/15/18 09:13 IMPRESSION: CHRONIC DEGENERATIVE CHANGES. NO ACUTE FINDINGS. Ankle X-Ray 12/15/18 11:02 IMPRESSION: Osteopenia. No fracture identified. Chest X-Ray 12/17/18 03:35 IMPRESSION: 1. No evidence of acute intrathoracic disease. 2. Evidence of prior granulomatous disease. Hip X-Ray 12/17/18 11:00 IMPRESSION: IMAGE(S) OBTAINED DURING PROCEDURE. Fluoroscopy 12/17/18 11:30 IMPRESSION: IMAGE(S) OBTAINED DURING PROCEDURE. Wrist X-Ray 12/17/18 11:30 IMPRESSION: IMAGE(S) OBTAINED DURING PROCEDURE. Assessment and Plan - Diagnosis (1) Closed intertrochanteric fracture of left femur Qualifiers: Encounter type: initial encounter Fracture alignment: displaced Qualified Code(s): S72.142A - Displaced intertrochanteric fracture of left femur, initial encounter for closed fracture Is this a current diagnosis for this admission?: Yes Plan: Awaiting surgical correction for tomorrow. Will need placement for recovery. (2) Distal radius fracture, left Qualifiers: Encounter type: initial encounter Fracture type: closed Fracture morphology: unspecified fracture morphology Qualified Code(s): S52.502A - Unspecified fracture of the lower end of left radius, initial encounter for closed fracture Is this a current diagnosis for this admission?: Yes Plan: The left arm/wrist is casted. Please see orthopedic surgery note. Will need longterm facility placement for rehab after discharge. (3) Dementia Qualifiers: Dementia type: vascular dementia Dementia behavioral disturbance: without behavioral disturbance Qualified Code(s): F01.50 - Vascular dementia without behavioral disturbance Is this a current diagnosis for this admission?: Yes Plan: Currently stable. No behavioral issues. Continue adequate analgesia. Family i s very attentive and supportive. (4) HTN (hypertension) Qualifiers: Hypertension type: essential hypertension Qualified Code(s): I10 - Essential (primary) hypertension Is this a current diagnosis for this admission?: Yes Plan: Continue lisinopril, hydralazine, metoprolol and furosemide. Blood pressures are still elevated. This could be due to pain. We will monitor and consider adjustments if required. (5) Hypokalemia Is this a current diagnosis for this admission?: Yes Plan: Potassium is now normal. Monitor level and supplement as indicated. - Time Time Spent with patient: 15-24 minutes Medications reviewed and adjusted accordingly: Yes Anticipated discharge: SNF
--- NOTE | 2018-12-18 08:03 | PDOC PROGRESS REPORT ---
Subjective Progress Note for:: 12/17/18 Subjective:: The patient underwent surgery earlier today. He is in good spirits. His reports that the skin tear on the left hand is still bothering the patient. Reason For Visit: HIP FRACTURE Physical Exam Vital Signs: Temp Pulse Resp BP Pulse Ox 97.8 F 88 16 156/78 H 98 12/17/18 13:27 12/17/18 13:27 12/17/18 13:27 12/17/18 13:27 12/17/18 13:27 Intake & Output 12/16/18 12/17/18 12/18/18 06:59 06:59 06:59 Intake Total 350 1050 Output Total 2200 550 Balance -1850 500 Weight 122 kg 123.6 kg General appearance: PRESENT: no acute distress, cooperative, well-developed Head exam: PRESENT: atraumatic, normocephalic Respiratory exam: PRESENT: clear to auscultation dante, symmetrical, unlabored. ABSENT: rales, rhonchi, tachypnea, wheezes Cardiovascular exam: PRESENT: RRR, +S1, +S2 GI/Abdominal exam: PRESENT: normal bowel sounds, soft. ABSENT: distended, tenderness Rectal exam: PRESENT: deferred Gentrourinary exam: PRESENT: indwelling catheter Neurological exam: PRESENT: alert, awake, oriented to person, oriented to place, oriented to situation Psychiatric exam: PRESENT: appropriate affect. ABSENT: agitated, anxious Focused psych exam: ABSENT: delusional, restlessness Skin exam: PRESENT: other - Remove the dressing over the left fingers. A portion of the dressing was tucked under the end of the plaster splint. There is a skin tear on the dorsal aspect of the left third and fourth fingers. It is relatively superficial. There is no erythema or purulence. The patient does have range of motion. Results Laboratory Results: 12/17/18 04:28 12/17/18 16:05 12/17/18 12/17/18 12/17/18 04:28 04:28 09:35 WBC 14.8 H RBC 3.90 L Hgb 11.9 L Hct 34.2 L MCV 88 MCH 30.4 MCHC 34.7 RDW 13.8 Plt Count 111 L Seg Neutrophils % 81.6 H Lymphocytes % 8.0 L Monocytes % 10.2 Eosinophils % 0.0 Basophils % 0.2 Absolute Neutrophils 12.1 H Absolute Lymphocytes 1.2 Absolute Monocytes 1.5 H Absolute Eosinophils 0.0 Absolute Basophils 0.0 Sodium 137.1 137.5 Potassium 3.0 L* 3.6 Chloride 110 H 104 Carbon Dioxide 22 26 Anion Gap 5 8 BUN 14 15 Creatinine 0.80 0.85 Est GFR ( Amer) > 60 > 60 Est GFR (Non-Af Amer) > 60 > 60 Glucose 149 H 143 H Calcium 8.2 L 9.1 Magnesium 1.6 Total Bilirubin 1.7 H AST 22 ALT 31 Alkaline Phosphatase 67 Total Protein 4.8 L Albumin 2.5 L Blood Type Antibody Screen 12/17/18 12/17/18 12/17/18 09:35 09:35 16:05 WBC RBC Hgb Hct MCV MCH MCHC RDW Plt Count Seg Neutrophils % Lymphocytes % Monocytes % Eosinophils % Basophils % Absolute Neutrophils Absolute Lymphocytes Absolute Monocytes Absolute Eosinophils Absolute Basophils Sodium Potassium Cancelled 3.8 Chloride Carbon Dioxide Anion Gap BUN Creatinine Est GFR ( Amer) Est GFR (Non-Af Amer) Glucose Calcium Magnesium Total Bilirubin AST ALT Alkaline Phosphatase Total Protein Albumin Blood Type O POSITIVE Antibody Screen NEGATIVE 12/15/18 12/16/18 09:00 06:16 Troponin I < 0.012 NT-Pro-B Natriuret Pep 1540 H Impressions: Forearm X-Ray 12/15/18 09:09 IMPRESSION: Fracture of the distal radius. Hand X-Ray 12/15/18 09:09 IMPRESSION: Please see combined report for performance of procedure and radiologic supervision and interpretation. Pelvis X-Ray 12/15/18 09:09 IMPRESSION: Intertrochanteric fracture right femoral neck. Head CT 12/15/18 09:12 IMPRESSION: CHRONIC CHANGES OF ATROPHY AND MICROVASCULAR ISCHEMIA. NO ACUTE PROCESS. EVIDENCE OF ACUTE STROKE: NO. Cervical Spine CT 12/15/18 09:13 IMPRESSION: CHRONIC DEGENERATIVE CHANGES. NO ACUTE FINDINGS. Ankle X-Ray 12/15/18 11:02 IMPRESSION: Osteopenia. No fracture identified. Chest X-Ray 12/17/18 03:35 IMPRESSION: 1. No evidence of acute intrathoracic disease. 2. Evidence of prior granulomatous disease. Hip X-Ray 12/17/18 11:00 IMPRESSION: IMAGE(S) OBTAINED DURING PROCEDURE. Fluoroscopy 12/17/18 11:30 IMPRESSION: IMAGE(S) OBTAINED DURING PROCEDURE. Wrist X-Ray 12/17/18 11:30 IMPRESSION: IMAGE(S) OBTAINED DURING PROCEDURE. Assessment and Plan - Diagnosis (1) Closed intertrochanteric fracture of left femur Qualifiers: Encounter type: initial encounter Fracture alignment: displaced Qualified Code(s): S72.142A - Displaced intertrochanteric fracture of left femur, initial encounter for closed fracture Is this a current diagnosis for this admission?: Yes Plan: Patient underwent surgical repair this morning. He appears to be doing well. He will need referral to nursing home facility for rehab. (2) Distal radius fracture, left Qualifiers: Encounter type: initial encounter Fracture type: closed Fracture morphology: unspecified fracture morphology Qualified Code(s): S52.502A - Unspecified fracture of the lower end of left radius, initial encounter for closed fracture Is this a current diagnosis for this admission?: Yes Plan: Please see orthopedic surgery notes. Management per orthopedics. (3) Dementia Qualifiers: Dementia type: vascular dementia Dementia behavioral disturbance: without behavioral disturbance Qualified Code(s): F01.50 - Vascular dementia without behavioral disturbance Is this a current diagnosis for this admission?: Yes Plan: Dementia is stable. No behavioral issues. No change in regimen. (4) HTN (hypertension) Qualifiers: Hypertension type: essential hypertension Qualified Code(s): I10 - Essential (primary) hypertension Is this a current diagnosis for this admission?: Yes Plan: Blood pressures are still high. The patient did just have surgery this morning. If they remain elevated tomorrow then I will adjust his medications. (5) Hypokalemia Is this a current diagnosis for this admission?: Yes Plan: Serum potassium is normal. Continue to monitor. Replace as needed. (6) Skin tear of left hand without complication Qualifiers: Encounter type: initial encounter Qualified Code(s): S61.412A - Laceration without foreign body of left hand, initial encounter Is this a current diagnosis for this admission?: Yes Plan: The gauze was removed and the skin tear was identified. There is no purulent drainage. I did have to trim back the edge of the plaster splint to allow access. I have placed orders to clean the area with saline, cover the skin tears with Xeroform and secured with roll gauze or Kerlix dressing. We will need to change his daily. Because of the patient's dementia if he continues to try and scratch for otherwise upset the dressing we may need to consider a hand mitten on that hand.
[2018-12-18] MEDS: FUROSEMIDE 40 MG TABLET PO SCH (08:39)
[2018-12-18] MEDS: DIPHENHYDRAMINE HCL 50 MG/ML VIAL IV PRN ×2 (08:40→22:22)
[2018-12-18] MEDS ORDERED: [UNRECOGNIZED DRUG - OTHER] PO SCH (10:00)
[2018-12-18] MEDS ORDERED: CHOLECALCIFEROL PO SCH (10:00)
[2018-12-18] MEDS: OXYCODONE HCL SR 10 MG TABLET PO SCH ×2 (12:25→22:21)
[2018-12-18] MEDS: GABAPENTIN 100 MG CAPSULE PO SCH ×2 (12:25→20:18)
[2018-12-18] MEDS: ASPIRIN 81 MG TABLET, ENT COATED PO SCH (12:25)
[2018-12-18] MEDS: CHOLECALCIFEROL (D3) 1,000 UNIT TABLET PO SCH (12:26)
[2018-12-18] MEDS: SENNOSIDES/DOCUSATE 8.6-50 MG 1 EACH TABLET PO SCH ×2 (12:26→20:16)
[2018-12-18] MEDS: PRENATAL VITAMIN W DHA CAPSULE PO SCH (12:26)
[2018-12-18] MEDS: RINGERS SOLUTION,LACTATED 1,000 ML IV PRN (12:35)
[2018-12-18] MEDS: LISINOPRIL 10 MG TABLET PO SCH (20:17)
[2018-12-18] MEDS: SIMVASTATIN 40 MG TABLET PO SCH (20:18)
[2018-12-18] MEDS: FAMOTIDINE 20 MG TABLET PO SCH (22:21)
[2018-12-19] MEDS: CEFAZOLIN SODIUM 2 GM in DEXTROSE 5%-WATER 100 ML IV SCH ×4 (03:04→18:22)
[2018-12-19] MEDS: RINGERS SOLUTION,LACTATED 1,000 ML IV PRN (03:54)
[2018-12-19] MEDS: HYDRALAZINE HCL 10 MG TABLET PO SCH ×3 (06:01→21:07)
[2018-12-19] MEDS: MORPHINE SULFATE SR 15 MG TABLET PO SCH ×2 (06:01→18:22)
[2018-12-19] MEDS: PANTOPRAZOLE SODIUM 40 MG TABLET.DR PO SCH (06:01)
--- NOTE | 2018-12-19 06:23 | PDOC PROGRESS REPORT ---
Subjective Progress Note for:: 12/18/18 Subjective:: The patient is sleeping. His reports that he just received pain medication. She states that he still tries to pick at his left hand. Reason For Visit: HIP FRACTURE Physical Exam Vital Signs: Temp Pulse Resp BP Pulse Ox 98 F 85 17 185/81 H 100 12/18/18 11:31 12/18/18 11:31 12/18/18 11:31 12/18/18 11:31 12/18/18 11:31 Intake & Output 12/17/18 12/18/18 12/19/18 06:59 06:59 06:59 Intake Total 350 2990 100 Output Total 2200 1350 Balance -1850 1640 100 Weight 123.6 kg 123.6 kg Head exam: PRESENT: atraumatic, normocephalic Respiratory exam: PRESENT: clear to auscultation dante, symmetrical, unlabored. ABSENT: rales, rhonchi, tachypnea, wheezes Cardiovascular exam: PRESENT: RRR, +S1, +S2 GI/Abdominal exam: PRESENT: normal bowel sounds, soft. ABSENT: distended, tenderness Rectal exam: PRESENT: deferred Neurological exam: ABSENT: awake Psychiatric exam: ABSENT: agitated, anxious Focused psych exam: ABSENT: restlessness Results Laboratory Results: 12/18/18 04:49 12/18/18 04:49 12/17/18 12/18/18 12/18/18 16:05 04:49 04:49 WBC 17.2 H RBC 3.98 L Hgb 12.1 L Hct 34.9 L MCV 88 MCH 30.3 MCHC 34.7 RDW 14.1 H Plt Count 113 L Sodium 135.2 L Potassium 3.8 3.9 Chloride 104 Carbon Dioxide 24 Anion Gap 7 BUN 17 Creatinine 0.83 Est GFR ( Amer) > 60 Est GFR (Non-Af Amer) > 60 Glucose 135 H Calcium 9.0 12/15/18 12/16/18 09:00 06:16 Troponin I < 0.012 NT-Pro-B Natriuret Pep 1540 H Impressions: Forearm X-Ray 12/15/18 09:09 IMPRESSION: Fracture of the distal radius. Hand X-Ray 12/15/18 09:09 IMPRESSION: Please see combined report for performance of procedure and radiolo gic supervision and interpretation. Pelvis X-Ray 12/15/18 09:09 IMPRESSION: Intertrochanteric fracture right femoral neck. Head CT 12/15/18 09:12 IMPRESSION: CHRONIC CHANGES OF ATROPHY AND MICROVASCULAR ISCHEMIA. NO ACUTE PROCESS. EVIDENCE OF ACUTE STROKE: NO. Cervical Spine CT 12/15/18 09:13 IMPRESSION: CHRONIC DEGENERATIVE CHANGES. NO ACUTE FINDINGS. Ankle X-Ray 12/15/18 11:02 IMPRESSION: Osteopenia. No fracture identified. Chest X-Ray 12/17/18 03:35 IMPRESSION: 1. No evidence of acute intrathoracic disease. 2. Evidence of prior granulomatous disease. Hip X-Ray 12/17/18 11:00 IMPRESSION: IMAGE(S) OBTAINED DURING PROCEDURE. Fluoroscopy 12/17/18 11:30 IMPRESSION: IMAGE(S) OBTAINED DURING PROCEDURE. Wrist X-Ray 12/17/18 11:30 IMPRESSION: IMAGE(S) OBTAINED DURING PROCEDURE. Assessment and Plan - Diagnosis (1) Closed intertrochanteric fracture of left femur Qualifiers: Encounter type: initial encounter Fracture alignment: displaced Qualified Code(s): S72.142A - Displaced intertrochanteric fracture of left femur, initial encounter for closed fracture Is this a current diagnosis for this admission?: Yes Plan: Patient had surgery yesterday. Sleeping as he was just medicated with pain medicine. He will need rehab post discharge. (2) Distal radius fracture, left Qualifiers: Encounter type: initial encounter Fracture type: closed Fracture morphology: unspecified fracture morphology Qualified Code(s): S52.502A - Unspecified fracture of the lower end of left radius, initial encounter for closed fracture Is this a current diagnosis for this admission?: Yes Plan: Currently splinted. Defer to orthopedic surgery for management. (3) Dementia Qualifiers: Dementia type: vascular dementia Dementia behavioral disturbance: without behavioral disturbance Qualified Code(s): F01.50 - Vascular dementia without behavioral disturbance Is this a current diagnosis for this admission?: Yes Plan: Dementia is stable. No behavioral issues. No change in regimen. (4) HTN (hypertension) Qualifiers: Hypertension type: essential hypertension Qualified Code(s): I10 - Essential (primary) hypertension Is this a current diagnosis for this admission?: Yes Plan: Blood pressure continues to improve. No change in medication regimen at this time. (5) Hypokalemia Is this a current diagnosis for this admission?: Yes Plan: Potassium is currently normal. Continue to monitor. Supplement if required. (6) Skin tear of left hand without complication Qualifiers: Encounter type: initial encounter Qualified Code(s): S61.412A - Laceration without foreign body of left hand, initial encounter Is this a current diagnosis for this admission?: Yes Plan: The patient still tries to pick at the dressing on the left hand. Continue Xeroform dressings. They have covered the patient's hand with a sock with the toe cut out. This seems to decrease the patient's likeliness of disrupting the dressing. - Time Time Spent with patient: Less than 15 minutes Medications reviewed and adjusted accordingly: Yes Anticipated discharge: SNF
[2018-12-19 06:46] LABS: HEMATOCRIT 32.5 % (37.9-51.0); HEMOGLOBIN 11.2 g/dL (13.5-17.0); MEAN CORPUSCULAR HEMOGLOBIN 30.4 pg (27.0-33.4); MEAN CORPUSCULAR HGB CONC 34.5 g/dL (32.0-36.0); MEAN CORPUSCULAR VOLUME 88 fl (80-97); PLATELET COUNT 125 10^3/uL (150-450); RED BLOOD COUNT 3.69 10^6/uL (4.35-5.55); RED CELL DISTRIBUTION WIDTH 13.8 % (11.5-14.0); WHITE BLOOD COUNT 13.4 10^3/uL (4.0-10.5)
[2018-12-19 07:05] LABS: ANION GAP 6 (5-19); BLOOD UREA NITROGEN 20 mg/dL (7-20); CALCIUM 8.8 mg/dL (8.4-10.2); CARBON DIOXIDE 29 mmol/L (22-30); CHLORIDE 99 mmol/L (98-107); GLUCOSE 124 mg/dL (75-110); POTASSIUM 3.4 mmol/L (3.6-5.0); SODIUM 133.9 mmol/L (137-145)
[2018-12-19] MEDS: FUROSEMIDE 40 MG TABLET PO SCH (09:08)
[2018-12-19] MEDS: GABAPENTIN 100 MG CAPSULE PO SCH ×2 (09:08→18:21)
[2018-12-19] MEDS: PRENATAL VITAMIN W DHA CAPSULE PO SCH (09:08)
[2018-12-19] MEDS: OXYCODONE HCL SR 10 MG TABLET PO SCH (09:09)
[2018-12-19] MEDS: METOPROLOL SUCCINATE 50 MG TAB.SR.24H PO SCH ×2 (09:09→21:07)
[2018-12-19] MEDS: ASPIRIN 81 MG TABLET, ENT COATED PO SCH (09:09)
[2018-12-19] MEDS: CHOLECALCIFEROL (D3) 1,000 UNIT TABLET PO SCH (09:09)
[2018-12-19] MEDS: SENNOSIDES/DOCUSATE 8.6-50 MG 1 EACH TABLET PO SCH ×2 (09:09→18:23)
[2018-12-19] MEDS: DIPHENHYDRAMINE HCL 50 MG/ML VIAL IV PRN ×2 (09:13→18:31)
[2018-12-19] MEDS ORDERED: METOPROLOL SUCCINATE 25 MG TAB.SR.24H PO ONE (12:01)
[2018-12-19] MEDS: OXYCODONE HCL IR 5 MG TABLET PO PRN (14:02)
[2018-12-19] MEDS: LISINOPRIL 10 MG TABLET PO SCH (18:21)
[2018-12-19] MEDS: SIMVASTATIN 40 MG TABLET PO SCH (18:21)
[2018-12-19] MEDS: FAMOTIDINE 20 MG TABLET PO SCH (21:07)
[2018-12-20] MEDS: OXYCODONE HCL IR 5 MG TABLET PO PRN ×2 (00:58→09:20)
[2018-12-20] MEDS: CEFAZOLIN SODIUM 2 GM in DEXTROSE 5%-WATER 100 ML IV SCH ×4 (00:59→17:29)
[2018-12-20] MEDS: MORPHINE SULFATE SR 15 MG TABLET PO SCH ×2 (06:05→17:31)
[2018-12-20] MEDS: HYDRALAZINE HCL 10 MG TABLET PO SCH ×3 (06:06→22:30)
[2018-12-20] MEDS: PANTOPRAZOLE SODIUM 40 MG TABLET.DR PO SCH (06:07)
[2018-12-20 06:32] LABS: HEMATOCRIT 30.6 % (37.9-51.0); HEMOGLOBIN 10.6 g/dL (13.5-17.0); MEAN CORPUSCULAR HEMOGLOBIN 30.4 pg (27.0-33.4); MEAN CORPUSCULAR HGB CONC 34.7 g/dL (32.0-36.0); MEAN CORPUSCULAR VOLUME 88 fl (80-97); PLATELET COUNT 134 10^3/uL (150-450); RED CELL DISTRIBUTION WIDTH 14.1 % (11.5-14.0); WHITE BLOOD COUNT 12.5 10^3/uL (4.0-10.5)
--- NOTE | 2018-12-20 07:02 | PDOC PROGRESS REPORT ---
Subjective Progress Note for:: 12/20/18 Reason For Visit: HIP FRACTURE 83-year-old white male now postop day 3 status post open reduction internal fixation of a left intratrochanteric femur fracture. Patient with limited progress with physical therapy. Physical Exam Vital Signs: Temp Pulse Resp BP Pulse Ox 37.7 C 78 20 132/59 H 92 12/19/18 23:52 12/20/18 02:00 12/19/18 20:23 12/19/18 23:52 12/19/18 23:52 Intake & Output 12/19/18 12/20/18 12/21/18 06:59 06:59 06:59 Intake Total 2116 1400 Output Total 2900 Balance -784 1400 Weight 123.6 kg 122.5 kg General appearance: PRESENT: no acute distress, mild distress, well-developed, well-nourished Head exam: PRESENT: normocephalic Respiratory exam: PRESENT: unlabored Cardiovascular exam: PRESENT: RRR Pulses: PRESENT: +1 pedal pulses bilateral Vascular exam: PRESENT: normal capillary refill GI/Abdominal exam: PRESENT: soft Rectal exam: PRESENT: deferred Musculoskeletal exam: PRESENT: other - Left hip dressings x3 clean dry and intact. Leg lengths are equal. Distal neurovascular examination is intact. Results Laboratory Results: 12/20/18 05:48 12/19/18 05:16 12/19/18 12/20/18 05:16 05:48 WBC 12.5 H RBC 3.50 L Hgb 10.6 L Hct 30.6 L MCV 88 MCH 30.4 MCHC 34.7 RDW 14.1 H Plt Count 134 L Sodium 133.9 L Potassium 3.4 L Chloride 99 Carbon Dioxide 29 Anion Gap 6 BUN 20 Creatinine 1.03 Est GFR ( Amer) > 60 Est GFR (Non-Af Amer) > 60 Glucose 124 H Calcium 8.8 Magnesium 1.8 12/15/18 12/16/18 09:00 06:16 Troponin I < 0.012 NT-Pro-B Natriuret Pep 1540 H Impressions: Forearm X-Ray 12/15/18 09:09 IMPRESSION: Fracture of the distal radius. Hand X-Ray 12/15/18 09:09 IMPRESSION: Please see combined report for performance of procedure and radiologic supervision and interpretation. Pelvis X-Ray 12/15/18 09:09 IMPRESSION: Intertrochanteric fracture right femoral neck. Head CT 12/15/18 09:12 IMPRESSION: CHRONIC CHANGES OF ATROPHY AND MICROVASCULAR ISCHEMIA. NO ACUTE PROCESS. EVIDENCE OF ACUTE STROKE: NO. Cervical Spine CT 12/15/18 09:13 IMPRESSION: CHRONIC DEGENERATIVE CHANGES. NO ACUTE FINDINGS. Ankle X-Ray 12/15/18 11:02 IMPRESSION: Osteopenia. No fracture identified. Chest X-Ray 12/17/18 03:35 IMPRESSION: 1. No evidence of acute intrathoracic disease. 2. Evidence of prior granulomatous disease. Hip X-Ray 12/17/18 11:00 IMPRESSION: IMAGE(S) OBTAINED DURING PROCEDURE. Fluoroscopy 12/17/18 11:30 IMPRESSION: IMAGE(S) OBTAINED DURING PROCEDURE. Wrist X-Ray 12/17/18 11:30 IMPRESSION: IMAGE(S) OBTAINED DURING PROCEDURE. Status: Imported from PACS Assessment & Plan - Diagnosis (1) Closed intertrochanteric fracture of left femur Qualifiers: Encounter type: initial encounter Fracture alignment: displaced Qualified Code(s): S72.142A - Displaced intertrochanteric fracture of left femur, initial encounter for closed fracture Is this a current diagnosis for this admission?: Yes Plan: Mobilized with physical therapy and weightbearing as tolerated basis. [facility] bed [facility]. - Time Time Spent with patient: 15-24 minutes Anticipated discharge: SNF Within: when bed available
[2018-12-20] MEDS: FUROSEMIDE 40 MG TABLET PO SCH (07:39)
[2018-12-20] MEDS: CHOLECALCIFEROL (D3) 1,000 UNIT TABLET PO SCH (09:16)
[2018-12-20] MEDS: ASPIRIN 81 MG TABLET, ENT COATED PO SCH (09:16)
[2018-12-20] MEDS: GABAPENTIN 100 MG CAPSULE PO SCH ×2 (09:16→17:29)
[2018-12-20] MEDS: PRENATAL VITAMIN W DHA CAPSULE PO SCH (09:16)
[2018-12-20] MEDS: SENNOSIDES/DOCUSATE 8.6-50 MG 1 EACH TABLET PO SCH ×2 (09:16→17:28)
[2018-12-20] MEDS: METOPROLOL SUCCINATE 50 MG TAB.SR.24H PO SCH ×2 (09:17→22:30)
[2018-12-20] MEDS: DIPHENHYDRAMINE HCL 50 MG/ML VIAL IV PRN (14:09)
--- NOTE | 2018-12-20 14:27 | PDOC PROGRESS REPORT ---
Subjective Progress Note for:: 12/19/18 Subjective:: The patient is resting comfortably but awakens easily. He appears to be in good spirits but still reports some discomfort with the hip. Reason For Visit: HIP FRACTURE Physical Exam Vital Signs: Temp Pulse Resp BP Pulse Ox 97.7 F 79 18 176/83 H 91 L 12/19/18 11:24 12/19/18 11:24 12/19/18 11:24 12/19/18 11:24 12/19/18 11:24 Intake & Output 12/18/18 12/19/18 12/20/18 06:59 06:59 06:59 Intake Total 2990 2116 1100 Output Total 1350 2900 Balance 1640 -784 1100 Weight 123.6 kg 123.6 kg General appearance: PRESENT: no acute distress, cooperative, well-developed Head exam: PRESENT: normocephalic Mouth exam: PRESENT: moist, tongue midline Respiratory exam: PRESENT: clear to auscultation dante, symmetrical, unlabored. ABSENT: accessory muscle use, rales, rhonchi, tachypnea, wheezes Cardiovascular exam: PRESENT: RRR, +S1, +S2 GI/Abdominal exam: PRESENT: normal bowel sounds, soft. ABSENT: tenderness Rectal exam: PRESENT: deferred Neurological exam: PRESENT: alert, awake, oriented to person Psychiatric exam: PRESENT: normal mood. ABSENT: agitated, anxious Skin exam: PRESENT: other - Skin tear on left hand/fingers. I did not remove the dressing during this encounter. Results Laboratory Results: 12/19/18 05:16 12/19/18 05:16 12/19/18 12/19/18 05:16 05:16 WBC 13.4 H RBC 3.69 L Hgb 11.2 L Hct 32.5 L MCV 88 MCH 30.4 MCHC 34.5 RDW 13.8 Plt Count 125 L Sodium 133.9 L Potassium 3.4 L Chloride 99 Carbon Dioxide 29 Anion Gap 6 BUN 20 Creatinine 1.03 Est GFR ( Amer) > 60 Est GFR (Non-Af Amer) > 60 Glucose 124 H Calcium 8.8 Magnesium 1.8 12/15/18 12/16/18 09:00 06:16 Troponin I < 0.012 NT-Pro-B Natriuret Pep 1540 H Impressions: Forearm X-Ray 12/15/18 09:09 IMPRESSION: Fracture of the distal radius. Hand X-Ray 12/15/18 09:09 IMPRESSION: Please see combined report for performance of procedure and radiologic supervision and interpretation. Pelvis X-Ray 12/15/18 09:09 IMPRESSION: Intertrochanteric fracture right femoral neck. Head CT 12/15/18 09:12 IMPRESSION: CHRONIC CHANGES OF ATROPHY AND MICROVASCULAR ISCHEMIA. NO ACUTE PROCESS. EVIDENCE OF ACUTE STROKE: NO. Cervical Spine CT 12/15/18 09:13 IMPRESSION: CHRONIC DEGENERATIVE CHANGES. NO ACUTE FINDINGS. Ankle X-Ray 12/15/18 11:02 IMPRESSION: Osteopenia. No fracture identified. Chest X-Ray 12/17/18 03:35 IMPRESSION: 1. No evidence of acute intrathoracic disease. 2. Evidence of prior granulomatous disease. Hip X-Ray 12/17/18 11:00 IMPRESSION: IMAGE(S) OBTAINED DURING PROCEDURE. Fluoroscopy 12/17/18 11:30 IMPRESSION: IMAGE(S) OBTAINED DURING PROCEDURE. Wrist X-Ray 12/17/18 11:30 IMPRESSION: IMAGE(S) OBTAINED DURING PROCEDURE. Assessment and Plan - Diagnosis (1) Closed intertrochanteric fracture of left femur Qualifiers: Encounter type: initial encounter Fracture alignment: displaced Qualified Code(s): S72.142A - Displaced intertrochanteric fracture of left femur, initial encounter for closed fracture Is this a current diagnosis for this admission?: Yes Plan: Successful surgical repair. The patient is going to transfer to intermediate facility for short-term rehab. The patient's wants him to return home as soon as possible. (2) Distal radius fracture, left Qualifiers: Encounter type: initial encounter Fracture type: closed Fracture morphology: unspecified fracture morphology Qualified Code(s): S52.502A - Unspecified fracture of the lower end of left radius, initial encounter for closed fracture Is this a current diagnosis for this admission?: Yes Plan: Nonsurgical. Patient is in a plaster splint. Defer to orthopedic surgery. There is just enough room to apply the dressing to the skin tear on the left hand. (3) Dementia Qualifiers: Dementia type: vascular dementia Dementia behavioral disturbance: without behavioral disturbance Qualified Code(s): F01.50 - Vascular dementia without behavioral disturbance Is this a current diagnosis for this admission?: Yes Plan: Per family, the patient is at baseline. He is very pleasant to deal with but his dementia is significant. (4) HTN (hypertension) Qualifiers: Hypertension type: essential hypertension Qualified Code(s): I10 - Keven al (primary) hypertension Is this a current diagnosis for this admission?: Yes Plan: His lisinopril was increased. He is on furosemide and metoprolol has been added. Continue to monitor blood pressure and adjust medications as needed. (5) Hypokalemia Is this a current diagnosis for this admission?: Yes Plan: Potassium corrected. Continue to monitor and supplement as required (6) Skin tear of left hand without complication Qualifiers: Encounter type: initial encounter Qualified Code(s): S61.412A - Laceration without foreign body of left hand, initial encounter Is this a current diagnosis for this admission?: Yes Plan: Continue Xeroform secured with Kerlix gauze and tape. Change daily. - Time Time Spent with patient: 15-24 minutes Medications reviewed and adjusted accordingly: Yes Anticipated discharge: SNF - Plan Summary Plan Summary: Due to the left hip and left wrist fracture the patient will need 30 days or less at a intermediate facility.
--- NOTE | 2018-12-20 16:18 | PDOC PROGRESS REPORT ---
Subjective Progress Note for:: 12/20/18 Subjective:: No adverse events overnight. No new complaints. He is very difficult for the nurses to handle when he has to be turned or his adult diaper change, and so his is asked if his Dixon could be left in until he leaves the hospital to reduce the number of times he has to be turned because she knows it is difficult for the staff to do it. Reason For Visit: HIP FRACTURE Physical Exam Vital Signs: Temp Pulse Resp BP Pulse Ox 98.7 F 78 16 148/73 H 89 L 12/20/18 12:00 12/20/18 14:00 12/20/18 12:00 12/20/18 08:03 12/20/18 12:00 Intake & Output 12/19/18 12/20/18 12/21/18 06:59 06:59 06:59 Intake Total 2116 1400 100 Output Total 2900 Balance -784 1400 100 Weight 123.6 kg 122.5 kg General appearance: PRESENT: no acute distress, cooperative, well-developed Head exam: PRESENT: normocephalic Mouth exam: PRESENT: moist, tongue midline Respiratory exam: PRESENT: clear to auscultation dante, symmetrical, unlabored. ABSENT: accessory muscle use, rales, rhonchi, tachypnea, wheezes Cardiovascular exam: PRESENT: RRR, +S1, +S2 GI/Abdominal exam: PRESENT: normal bowel sounds, soft. ABSENT: tenderness Neurological exam: PRESENT: alert, awake, oriented to person Psychiatric exam: PRESENT: normal mood. ABSENT: agitated, anxious Skin exam: PRESENT: other - Skin tear on left hand/fingers, covered with a heavy bandage Results Laboratory Results: 12/20/18 05:48 12/19/18 05:16 12/20/18 05:48 WBC 12.5 H RBC 3.50 L Hgb 10.6 L Hct 30.6 L MCV 88 MCH 30.4 MCHC 34.7 RDW 14.1 H Plt Count 134 L 12/15/18 12/16/18 09:00 06:16 Troponin I < 0.012 NT-Pro-B Natriuret Pep 1540 H Impressions: Forearm X-Ray 12/15/18 09:09 IMPRESSION: Fracture of the distal radius. Hand X-Ray 12/15/18 09:09 IMPRESSION: Please see combined report for performance of procedure and radiologic supervision and interpretation. Pelvis X-Ray 12/15/18 09:09 IMPRESSION: Intertrochanteric fracture right femoral neck. Head CT 12/15/18 09:12 IMPRESSION: CHRONIC CHANGES OF ATROPHY AND MICROVASCULAR ISCHEMIA. NO ACUTE PROCESS. EVIDENCE OF ACUTE STROKE: NO. Cervical Spine CT 12/15/18 09:13 IMPRESSION: CHRONIC DEGENERATIVE CHANGES. NO ACUTE FINDINGS. Ankle X-Ray 12/15/18 11:02 IMPRESSION: Osteopenia. No fracture identified. Chest X-Ray 12/17/18 03:35 IMPRESSION: 1. No evidence of acute intrathoracic disease. 2. Evidence of prior granulomatous disease. Hip X-Ray 12/17/18 11:00 IMPRESSION: IMAGE(S) OBTAINED DURING PROCEDURE. Fluoroscopy 12/17/18 11:30 IMPRESSION: IMAGE(S) OBTAINED DURING PROCEDURE. Wrist X-Ray 12/17/18 11:30 IMPRESSION: IMAGE(S) OBTAINED DURING PROCEDURE. Assessment and Plan - Diagnosis (1) Closed intertrochanteric fracture of left femur Qualifiers: Encounter type: initial encounter Fracture alignment: displaced Qualified Code(s): S72.142A - Displaced intertrochanteric fracture of left femur, initial encounter for closed fracture Is this a current diagnosis for this admission?: Yes Plan: Successful surgical repair. The patient is going to transfer to half-way facility for short-term rehab. The patient's wants him to return home as soon as possible. We are awaiting a PASSR number (2) Dementia Qualifiers: Dementia type: vascular dementia Dementia behavioral disturbance: without behavioral disturbance Qualified Code(s): F01.50 - Vascular dementia without behavioral disturbance Is this a current diagnosis for this admission?: Yes Plan: Per family, the patient is at baseline. He is very pleasant to deal with but his dementia is significant. (3) Distal radius fracture, left Qualifiers: Encounter type: initial encounter Fracture type: closed Fracture morphology: unspecified fracture morphology Qualified Code(s): S52.502A - Unspecified fracture of the lower end of left radius, initial encounter for closed fracture Is this a current diagnosis for this admission?: Yes Plan: Nonsurgical. Patient is in a plaster splint. Defer to orthopedic surgery. There is just enough room to apply the dressing to the skin tear on the left hand. (4) HTN (hypertension) Qualifiers: Hypertension type: essential hypertension Qualified Code(s): I10 - Essential (primary) hypertension Is this a current diagnosis for this admission?: Yes Plan: His lisinopril was increased. He is on furosemide and metoprolol has been added. Continue to monitor blood pressure and adjust medications as needed. (5) Hypokalemia Is this a current diagnosis for this admission?: Yes Plan: Potassium corrected. Continue to monitor and supplement as required (6) Skin tear of left hand without complication Qualifiers: Encounter type: initial encounter Qualified Code(s): S61.412A - Laceration without foreign body of left hand, initial encounter Is this a current diagnosis for this admission?: Yes Plan: Continue Xeroform secured with Kerlix gauze and tape. Change daily. - Time Time Spent with patient: 25-34 minutes
[2018-12-20] MEDS: SIMVASTATIN 40 MG TABLET PO SCH (17:29)
[2018-12-20] MEDS: LISINOPRIL 10 MG TABLET PO SCH (17:29)
[2018-12-20] MEDS: ALPRAZOLAM 0.5 MG TABLET PO PRN (18:01)
[2018-12-20] MEDS: FAMOTIDINE 20 MG TABLET PO SCH (22:31)
[2018-12-21] MEDS: CEFAZOLIN SODIUM 2 GM in DEXTROSE 5%-WATER 100 ML IV SCH ×4 (00:31→17:11)
[2018-12-21] MEDS ORDERED: NORMAL SALINE 1000 ML 1,000 ML IV ONE (05:15)
[2018-12-21] MEDS: PANTOPRAZOLE SODIUM 40 MG TABLET.DR PO SCH (06:54)
[2018-12-21] MEDS: HYDRALAZINE HCL 10 MG TABLET PO SCH ×2 (08:42→14:24)
[2018-12-21] MEDS: MORPHINE SULFATE SR 15 MG TABLET PO SCH ×2 (08:43→17:12)
[2018-12-21] MEDS: FUROSEMIDE 40 MG TABLET PO SCH (08:43)
[2018-12-21] MEDS: METOPROLOL SUCCINATE 50 MG TAB.SR.24H PO SCH (10:05)
[2018-12-21] MEDS: SENNOSIDES/DOCUSATE 8.6-50 MG 1 EACH TABLET PO SCH ×2 (10:05→17:11)
[2018-12-21] MEDS: GABAPENTIN 100 MG CAPSULE PO SCH ×2 (10:05→17:11)
[2018-12-21] MEDS: CHOLECALCIFEROL (D3) 1,000 UNIT TABLET PO SCH (10:05)
[2018-12-21] MEDS: ASPIRIN 81 MG TABLET, ENT COATED PO SCH (10:05)
[2018-12-21] MEDS: PRENATAL VITAMIN W DHA CAPSULE PO SCH (10:06)
--- NOTE | 2018-12-21 10:45 | PDOC TRANSFER SUMMARY ---
General - Admit/Disc Date/PCP Admission Date/Primary Care Provider: 12/15/18 14:47 RAJWINDER WEBB MD Discharge Date: 12/21/18 - Discharge Diagnosis (1) Closed intertrochanteric fracture of left femur Is this a current diagnosis for this admission?: Yes Summary: s/p ORIF. WBAT per Ortho. Follow-up 7-10 days with ortho. (2) Dementia Is this a current diagnosis for this admission?: Yes Summary: baseline (3) Distal radius fracture, left Is this a current diagnosis for this admission?: Yes Summary: s/p closed reduction with splinting, NWB per Ortho at this time (4) HTN (hypertension) Is this a current diagnosis for this admission?: Yes Summary: got a little more hypertensive due to pain, but regressed to the mean a few days post-op, now managed with his home meds (5) Hypokalemia Is this a current diagnosis for this admission?: Yes Summary: resolved with supplementation (6) Skin tear of left hand without complication Is this a current diagnosis for this admission?: Yes Summary: received local wound care for routine healing - Additional Information Resuscitation Status: Do Not Resuscitate Discharge Diet: Cardiac Discharge Activity: Supervised Activity Prescriptions: Morphine Sulfate [Ms-Contin Sr 15 mg Tablet] 30 mg PO 0600,1800 #12 tablet.sa Oxycodone HCl [Oxy-Ir 5 mg Tablet] 5 mg PO Q6HP PRN #10 tablet PRN Reason: Home Medications: Cholecalciferol (Vitamin D3) [Vitamin D3 2000 unit Capsule] 2,000 unit PO DAILY 01/08/12 Lisinopril [Prinivil 40 mg Tablet] 40 mg PO QPM 01/08/12 Metoprolol Succinate [Toprol Xl 50 mg Tab.sr] 50 mg PO BID 01/08/12 Simvastatin [Zocor 40 mg Tablet] 40 mg PO QPM 01/08/12 Fexofenadine HCl [Antonia] 1 tab PO DAILY PRN 01/17/14 Fluocinolone/Shower Cap [Hyhxv-Fsxmhvz-El Scalp Oil] 1 tab TOP DAILY 01/17/14 Furosemide [Lasix 40 mg Tablet] 1 tab PO QAM 01/17/14 Gabapentin 300 mg PO BID 01/10/15 Aspirin [Ecotrin] 81 mg PO DAILY 12/15/18 Morphine Sulfate [Ms-Contin Sr 15 mg Tablet] 30 mg PO 0600,1800 #12 tablet.sa 12/21/18 Oxycodone HCl [Oxy-Ir 5 mg Tablet] 5 mg PO Q6HP PRN #10 tablet 12/21/18 History of Present Illness Admission Date/PCP: 12/15/18 14:47 RAJWINDER WEBB MD History of Present Illness: EMMA BOSTON JR is a 83 year old male with a PMH of HTN, HLD and dementia. Patient got up in the early a.m. to ambulate (with walker) to the bathroom. Patient tripped and fell from standing position, endorses head trauma but denies LOC. He was brought by ambulance to [facility]. Radiological studies reveal right intertrochanteric fracture of the femoral neck and fracture of the left distal radius. Laboratory studies relatively benign. EKG shows NSR, no ischemia or infarction. Plan to admit to hospitalist service with Ortho Surgery consulted. Hospital Course Hospital Course: Underwent ORIF of left femur fracture, tolerated well. Had closed reduction left wrist with a splint, and local wound care for a skin tear on the left wrist. Home meds were used to manage his comorbid conditions. He stayed here because he needed a PASSR number prior to SNF placement. His labs and exam were reassuring and he was d/c'd in good condition. Physical Exam Vital Signs: Temp Pulse Resp BP Pulse Ox 99.0 F 76 16 151/67 H 95 12/21/18 07:59 12/21/18 07:59 12/21/18 07:59 12/21/18 07:59 12/21/18 07:59 Intake & Output 12/20/18 12/21/18 12/22/18 06:59 06:59 06:59 Intake Total 1400 2000 Output Total 3550 Balance 1400 -1550 Weight 122.5 kg 122.9 kg General appearance: PRESENT: no acute distress, cooperative, well-developed Head exam: PRESENT: normocephalic Mouth exam: PRESENT: moist, tongue midline Respiratory exam: PRESENT: clear to auscultation dante, symmetrical, unlabored. ABSENT: accessory muscle use, rales, rhonchi, tachypnea, wheezes Cardiovascular exam: PRESENT: RRR, +S1, +S2 GI/Abdominal exam: PRESENT: normal bowel sounds, soft. ABSENT: tenderness Neurological exam: PRESENT: alert, awake, oriented to person Psychiatric exam: PRESENT: normal mood. ABSENT: agitated, anxious Skin exam: PRESENT: other - Skin tear on left hand/fingers, covered with a heavy bandage Results Laboratory Results: 12/20/18 05:48 12/19/18 05:16 12/15/18 12/16/18 09:00 06:16 Troponin I < 0.012 NT-Pro-B Natriuret Pep 1540 H Impressions: Forearm X-Ray 12/15/18 09:09 IMPRESSION: Fracture of the distal radius. Hand X-Ray 12/15/18 09:09 IMPRESSION: Please see combined report for performance of procedure and radiologic supervision and interpretation. Pelvis X-Ray 12/15/18 09:09 IMPRESSION: Intertrochanteric fracture right femoral neck. Head CT 12/15/18 09:12 IMPRESSION: CHRONIC CHANGES OF ATROPHY AND MICROVASCULAR ISCHEMIA. NO ACUTE PROCESS. EVIDENCE OF ACUTE STROKE: NO. Cervical Spine CT 12/15/18 09:13 IMPRESSION: CHRONIC DEGENERATIVE CHANGES. NO ACUTE FINDINGS. Ankle X-Ray 12/15/18 11:02 IMPRESSION: Osteopenia. No fracture identified. Chest X-Ray 12/17/18 03:35 IMPRESSION: 1. No evidence of acute intrathoracic disease. 2. Evidence of prior granulomatous disease. Hip X-Ray 12/17/18 11:00 IMPRESSION: IMAGE(S) OBTAINED DURING PROCEDURE. Fluoroscopy 12/17/18 11:30 IMPRESSION: IMAGE(S) OBTAINED DURING PROCEDURE. Wrist X-Ray 12/17/18 11:30 IMPRESSION: IMAGE(S) OBTAINED DURING PROCEDURE. Qualifiers - * PATIENT BEING DISCHARGED WITH ANY OF THE FOLLOWING DIAGNOSIS: No Plan Time Spent: Greater than 30 Minutes
[2018-12-21] MEDS: OXYCODONE HCL IR 5 MG TABLET PO PRN (11:16)
[2018-12-21] MEDS: ALPRAZOLAM 0.5 MG TABLET PO PRN (15:45)
[2018-12-21] MEDS: LISINOPRIL 10 MG TABLET PO SCH (17:10)
[2018-12-21] MEDS: SIMVASTATIN 40 MG TABLET PO SCH (17:11)
[2018-12-21] MEDS: DIPHENHYDRAMINE HCL 50 MG/ML VIAL IV PRN (19:34)
[2018-12-21] MEDS: MORPHINE SULFATE 10 MG/ML INJ IV PRN (21:18)
[2018-12-21 21:34] VITALS: BP 99/50
== END 2018-12-21 21:45 | DRG 481 ==
LOC: ER 08:44 → EH 14:47 → 4N 17:25
PROVIDERS: ADMIT Internal Medicine; ATTEND Internal Medicine
PROC: 0PSJXZZ Reposition Left Radius, External Approach (ICD-10-PCS; 2018-12-17)
PROC: 0QH736Z Insertion of Intramedullary Internal Fixation Device into Left Upper Femur, Percutaneous Approach (ICD-10-PCS; principal; 2018-12-17 11:45)
DX: S72.142A Displaced intertrochanteric fracture of left femur, initial encounter for closed fracture (principal); S52.502A Unspecified fracture of the lower end of left radius, initial encounter for closed fracture; W01.0XXA Fall on same level from slipping, tripping and stumbling without subsequent striking against object, initial encounter; I10 Essential (primary) hypertension; Z66 Do not resuscitate; E87.6 Hypokalemia; S61.412A Laceration without foreign body of left hand, initial encounter; E78.5 Hyperlipidemia, unspecified; L40.9 Psoriasis, unspecified; F01.50 Vascular dementia, unspecified severity, without behavioral disturbance, psychotic disturbance, mood disturbance, and anxiety; Z79.82 Long term (current) use of aspirin; Z79.891 Long term (current) use of opiate analgesic; Z79.899 Other long term (current) drug therapy; Z85.038 Personal history of other malignant neoplasm of large intestine; Z85.828 Personal history of other malignant neoplasm of skin; Z90.49 Acquired absence of other specified parts of digestive tract; Z92.21 Personal history of antineoplastic chemotherapy; Z92.3 Personal history of irradiation; Z87.891 Personal history of nicotine dependence; Z82.49 Family history of ischemic heart disease and other diseases of the circulatory system; Z80.6 Family history of leukemia
CPT/HCPCS: 01230; 36415; 51701; 70450; 71045; 72125; 72170; 80048; 80053; 81001; 83735; 83880; 84132; 84484; 85025; 85027; 85610; 85730; 86850; 86900; 86901; 93005; 93010; 94799; 96374; 96375; 99285; C1713; C1769; J0690; J1170; J1200; J2250; J2270; J2704; J3010; J3480; J3490; J7030; J7120